=== PATIENT | female | born 1930 | race Caucasian/White ===

== ENCOUNTER 2017-02-09 13:45 | Inpatient (IN) | payer OTHER ==
[~2017-02-09] VITALS: Ht 157.5 cm; Wt 108.9 kg
[~2017-02-09 13:45] MED LIST: ACET-2619 PO; AMLO10TA1 PO; ASPI81CT89 PO; CALC1TAB PO; CARI350T PO; DONE10TA3 PO; DULO30EC PO; GEMF600T6 PO; HYDR2TAB6 PO; Milk Of Magnesia PO; NITR0.4T52 SL; TRAV5SOL OP; VIC PO; ZOLP10TA1 PO; [UNRECOGNIZED DRUG - CODE] IM; [UNRECOGNIZED DRUG - CODE] OP
--- NOTE | 2017-02-09 13:45 | NUR ---
Patient was BIBA at this time.
[2017-02-09 13:49] VITALS: BP 154/74
--- NOTE | 2017-02-09 13:56 | NUR ---
Patient taken to bed 04 via gurney per EMS.
--- NOTE | 2017-02-09 14:00 | NUR ---
PATIENT PRESENTS TO ED WITH right sided weakness since 10am today . PT STATES . DENIES N/V/D; SKIN IS PINK/WARM/DRY; AAOX4 LUNGS CLEAR BL; HR EVEN AND REGULAR; PT DENIES ANY FEVER, CP, SOB, OR COUGH AT THIS TIME; PATIENT STATES PAIN OF 8/10 AT THIS TIME to lle; VSS; PATIENT POSITIONED FOR COMFORT; HOB ELEVATED; BEDRAILS UP X2; BED DOWN. ER MD MADE AWARE OF PT STATUS.
--- NOTE | 2017-02-09 14:03 | NUR ---
Dr. Barboza evaluating patient at bedside.
--- NOTE | 2017-02-09 14:12 | NUR ---
Patient to CT via [facility].
[2017-02-09 14:46] LABS: BASOPHILS # (AUTO) 0.1 K/uL (0.00-0.22); EOSINOPHILS # (AUTO) 0.7 K/uL (0-0.4); HEMOGLOBIN 11.6 g/dL (12.0-16.0); LYMPHOCYTES # (AUTO) 1.3 K/uL (2.5-16.5); RED CELL DISTRIBUTION WIDTH 13.9 % (11.6-13.7)
[2017-02-09 14:49] LABS: BASOPHILS % (AUTO) 1.6 % (0.0-2.0); EOSINOPHILS % (AUTO) 7.5 % (0.0-4.0); LYMPHOCYTES % (AUTO) 14.4 % (20.5-51.1); MEAN CORPUSCULAR HEMOGLOBIN 29 pg (27-31); MEAN CORPUSCULAR HGB CONC 33 g/dL (33-37); MEAN CORPUSCULAR VOLUME 89 fL (80-94); MONOCYTES # (AUTO) 0.4 K/uL (0.8-1.0); NEUTROPHILS # (AUTO) 6.3 K/uL (1.8-7.7); NEUTROPHILS % (AUTO) 71.5 % (42.2-75.2); PLATELET COUNT (AUTO) 388 K/uL (140-450); RED BLOOD CELL COUNT(AUTO) 3.96 MIL/uL (4.20-5.40); WHITE BLOOD COUNT (AUTO) 8.8 K/uL (4.8-10.8)
--- NOTE | 2017-02-09 14:58 | NUR ---
stayed speaking with pt at length--she spoke of her favorite nurse and staff at her facility. remains with full clear speech continues to denie WHITNEY. remains with r sided weakness +sensation to all extremities
[2017-02-09] MEDS ORDERED: ASPIRIN 325 MG TAB PO ONE (15:00)
[2017-02-09 15:03] LABS: INR 1.1 (0.8-1.2); PARTIAL THROMBOPLASTIN TIME 26.5 secs (22-35.6); PROTHROMBIN TIME 10.3 secs (10.8-13.4)
--- NOTE | 2017-02-09 15:05 | NUR ---
pt requesting analgesic for LLE ---MD notified
[2017-02-09 15:07] LABS: ALANINE AMINOTRANSFERASE 16 U/L (12-78); ALBUMIN 3.3 g/dL (3.4-5.0); ALKALINE PHOSPHATASE 137 U/L (46-116); ANION GAP 14.2 (8-16); ASPARTATE AMINOTRANSFERASE 18 U/L (15-37); CALCIUM 8.7 mg/dL (8.5-10.1); CARBON DIOXIDE 25.5 mmol/L (21-32); CHLORIDE 100 mmol/L (98-107); GLUCOSE 116 mg/dL (74-106); POTASSIUM 3.7 mmol/L (3.5-5.1); SODIUM SERUM 136 mmol/L (136-145); TOTAL BILIRUBIN 0.2 mg/dL (0.0-1.0); TOTAL PROTEIN, SERUM 8.1 g/dL (6.4-8.2); UREA NITROGEN, BLOOD 37 mg/dL (7-18)
[2017-02-09] MEDS ORDERED: FUROSEMIDE 20 MG/2 ML VIAL IVP ONE (15:10)
[2017-02-09] MEDS ORDERED: ONDANSETRON 4 MG/2 ML VIAL IVP ONE (15:10)
[2017-02-09] MEDS ORDERED: HYDROmorphone 1 MG/ML AMP IVP ONE (15:10)
[2017-02-09] MEDS ORDERED: NITROGLYCERIN 2% 1 GM PKT TP ONE (15:10)
[2017-02-09] MEDS ORDERED: ACETAMINOPHEN 325 MG TAB PO PRN (15:25)
[2017-02-09] MEDS ORDERED: ONDANSETRON 4 MG/2 ML VIAL IVP PRN (15:25)
[2017-02-09] MEDS ORDERED: HYDROmorphone 2 MG TAB PO SCH (15:35)
--- NOTE | 2017-02-09 15:36 | NUR ---
Kenneth RN unable to take report at this time due to phone issue, he will call back
--- NOTE | 2017-02-09 15:58 | NUR ---
pt urine incontinent in diaper---diaper removed , pt cleaned--skin intact report given to Kenneth BELTRAN--urine collection pending ,
--- NOTE | 2017-02-09 15:59 | NUR ---
Pt transferred to Tele via aspen report given to Kenneth BELTRAN
[2017-02-09 16:10] LABS: CHOL/HDL RATIO 3.3 (1-4.5); FREE T4 (FREE THYROXINE) 0.83 ng/dL (0.76-1.46); MAGNESIUM 2.1 mg/dL (1.8-2.4); PHOSPHORUS 4.2 mg/dL (2.5-4.9); THYROID STIMULATING HORMONE 1.8 uIU/mL (0.34-3.76)
[2017-02-09 16:12] VITALS: BP 131/67
--- NOTE | 2017-02-09 16:12 | NUR ---
PT ADMITTED FROM ER, AWAKE ALERT AND ORIENTED X3. NO SIGNS OF ACUTE DISTRESS. BREATHING EVENLY AND UNLABORED. SKIN IS WARM AND DRY. PT IS LEGALLY BLIND. NO C/O ANY BOWEL OR BLADDER DISCOMFORT. ABLE TO MAKE NEEDS KNOWN. C/O LEFT LEG PAIN 03/22. MEDICATED FROM ER 20MINS AGO PER ASSIGNED ER NURSE. WILL REASSESS PAIN AND GIVE DUE MEDS ORDERED. SAFETY PRECAUTIONS MAINTAINED. ORIENTED TO HOSPITAL ENVIRONMENT. CALL LIGHT WITHIN REACH.
[2017-02-09] MEDS: NACL 0.9% 1,000 ML IV SCH (16:42)
[2017-02-09] MEDS: GEMFIBROZIL 600 MG TAB PO SCH (16:42)
[2017-02-09] MEDS: HYDROcodone/APAP 7.5/325 MG 1 TAB PO PRN ×2 (16:47→21:08)
[2017-02-09] MEDS ORDERED: MECLIZINE 25 MG TAB PO PRN (17:45)
[2017-02-09] MEDS ORDERED: DEXTROSE 50% 50 ML SYR IVP PRN (18:35)
[2017-02-09] MEDS ORDERED: INSULIN LISPRO SLIDING SCALE 100 UNITS/ML VIAL SUBQ PRN (18:35)
--- NOTE | 2017-02-09 18:35 | NUR ---
WAS SEEN BY DR. HERNADEZ, NEW ADMIT ORDERS RECEIVED. NOTED AND CARRIED OUT.
--- NOTE | 2017-02-09 19:00 | NUR ---
U/A COLLECTED AND SENT TO LAB. PT ALERT AND RESPONSIVE, NO SIGNS OF ACUTE DISTRESS. ENDORSED TO ONCOMING AUDIT MANAGER NURSE FOR CONTINUITY OF CARE.
--- NOTE | 2017-02-09 19:20 | NUR ---
RECD. SITTING ON BED, AWAKE, A/OX2. RESPIRATION EVEN AND UNLABORED. EATING HER DINNER. IV OF NS AT 50 ML/HR INFUSING, LEFT FOREARM G 22. LEGALLY BLIND. SAFETY MEASURES ENFORCED. PAIN IN THE LEFT LEG 09/22, WILL MEDICATE ORDERED. PLAN OF CARE FOR THE SHIFT DISCUSSED. NEEDS REINFORCEMENT. REORIENTED TO HOSPITAL SETTING.
[2017-02-09 20:00] VITALS: BP 125/65
--- NOTE | 2017-02-09 20:15 | NUR ---
FINISHED EATING DINNER, ATE 100%.
--- NOTE | 2017-02-09 20:35 | NUR ---
ASSISTED BY SENIOR RELATIONSHIP MANAGER TO BSC TO VOID. BACK TO BED AFTER VOIDING, SAFETY MAINTAINED.
[2017-02-09 21:04] LABS: APPEARANCE,URINE HAZY (CLEAR); BILIRUBIN,URINE NEGATIVE (NEGATIVE); BLOOD, URINE NEGATIVE (NEGATIVE); COLOR,URINE YELLOW (YELLOW); LEUKOCYTE ESTERASE ,URINE 2+ (NEGATIVE); NITRITE, URINE NEGATIVE (NEGATIVE); PH,URINE 6.5 (5.0-9.0); PROTEIN,URINE 1+ (NEGATIVE); UGLUCOSE NEGATIVE (NEGATIVE); UROBILINOGEN,URINE 0.2 EU/dL (0.2 - 1)
[2017-02-09] MEDS: DOCUSATE SODIUM 100 MG GELCAP PO SCH (21:08)
[2017-02-09] MEDS: ATORVASTATIN 20 MG TAB PO SCH (21:08)
[2017-02-09] MEDS: DONEPEZIL 10 MG TAB PO SCH (21:08)
[2017-02-09 21:10] LABS: BACTERIA,URINE 3+ /HPF (None Seen); RBC,URINE 0-3 /HPF (0-5); SQUAMOUS EPITHELIAL CELL,UR 0-3 /LPF (0-3 (FEW)); WBC,URINE 40-60 /HPF (0-5)
[2017-02-09] MEDS: BLOOD GLUCOSE MONITORING 1 DEV DEV FS SCH (21:12)
--- NOTE | 2017-02-09 21:15 | NUR ---
US TECH AT THE BEDSIDE, DOING US OF BILATERAL CAROTID.
[2017-02-09] MEDS: ZOLPIDEM 10 MG TAB PO PRN (22:32)
--- NOTE | 2017-02-09 22:32 | NUR ---
UNABLE TO SLEEP, MEDICATED WITH AMBIEN 10 MG. PO.
[2017-02-09] MEDS ORDERED: cefTRIAXone 1,000 MG VIAL ONE (22:41)
--- NOTE | 2017-02-09 23:32 | NUR ---
SLEEPING COMFORTABLY IN BED.
[2017-02-10] VITALS: BP 128/67
[2017-02-10 04:00] VITALS: BP 130/65
[2017-02-10] MEDS: HYDROcodone/APAP 7.5/325 MG 1 TAB PO PRN ×3 (05:22→20:13)
--- NOTE | 2017-02-10 05:32 | NUR ---
BS CHECKED - 89, 120 ML ORANGE JUICE GIVEN.
[2017-02-10 06:19] LABS: BASOPHILS % (AUTO) 0.5 % (0.0-2.0); EOSINOPHILS # (AUTO) 0.7 K/uL (0-0.4); EOSINOPHILS % (AUTO) 7.3 % (0.0-4.0); HEMOGLOBIN 10.3 g/dL (12.0-16.0); LYMPHOCYTES # (AUTO) 1.2 K/uL (2.5-16.5); MEAN CORPUSCULAR HEMOGLOBIN 29 pg (27-31); MEAN CORPUSCULAR HGB CONC 33 g/dL (33-37); MEAN CORPUSCULAR VOLUME 88 fL (80-94); MONOCYTES # (AUTO) 0.8 K/uL (0.8-1.0); MONOCYTES % (AUTO) 8.3 % (1.7-9.3); NEUTROPHILS # (AUTO) 6.7 K/uL (1.8-7.7); NEUTROPHILS % (AUTO) 70.9 % (42.2-75.2); PLATELET COUNT (AUTO) 389 K/uL (140-450); RED BLOOD CELL COUNT(AUTO) 3.52 MIL/uL (4.20-5.40); RED CELL DISTRIBUTION WIDTH 13.8 % (11.6-13.7); WHITE BLOOD COUNT (AUTO) 9.4 K/uL (4.8-10.8)
[2017-02-10] MEDS: BLOOD GLUCOSE MONITORING 1 DEV DEV FS SCH ×4 (06:31→21:32)
[2017-02-10 06:40] LABS: ANION GAP 14.1 (8-16); CALCIUM 8.2 mg/dL (8.5-10.1); CARBON DIOXIDE 25.7 mmol/L (21-32); CHLORIDE 104 mmol/L (98-107); CREATININE 1.9 mg/dL (0.6-1.3); GLUCOSE 95 mg/dL (74-106); POTASSIUM 3.8 mmol/L (3.5-5.1); SODIUM SERUM 140 mmol/L (136-145); UREA NITROGEN, BLOOD 35 mg/dL (7-18)
--- NOTE | 2017-02-10 06:42 | NUR ---
SLEEPING COMFORTABLY IN BED. SAFETY MAINTAINED DURING SHIFT. WILL ENDORSE TO AM NURSE FOR CONTINUITY OF CARE.
[2017-02-10 06:54] LABS: MAGNESIUM 2.1 mg/dL (1.8-2.4); PHOSPHORUS 4.3 mg/dL (2.5-4.9)
--- NOTE | 2017-02-10 07:20 | NUR ---
ENDORSED TO DEVIN LITTLE FOR CONTINUITY OF CARE.
--- NOTE | 2017-02-10 07:25 | NUR ---
REPORT RECEIVED FROM LABORATORY VETERINARIAN, PT SLEEPING QUIETLY IN NAD, RESP EVEN UNLABORED ON ROOM AIR, AROUSED EASILY BY VOICE, PLAN OF CARE REVIEWED, PT DENIES PAIN OR DISCOMFORT, CALL PRESSLEY WITHIN REACH, BED LOCKED IN LOW POSITION, SIDE RAILS UP. WILL CONTINUE TO MONITOR.
[2017-02-10 08:00] VITALS: BP 127/61
[2017-02-10] MEDS: PANTOPRAZOLE 40 MG INJ VIAL IVP SCH (08:19)
[2017-02-10] MEDS: ASPIRIN 81 MG TAB.CHEW PO SCH (08:20)
[2017-02-10] MEDS: DOCUSATE SODIUM 100 MG GELCAP PO SCH ×2 (08:20→21:05)
[2017-02-10] MEDS: CELECOXIB 100 MG CAP PO SCH (08:20)
[2017-02-10] MEDS: POLYVINYL ALCOHOL 1.4% OP 15 ML SOL OP SCH (08:20)
[2017-02-10] MEDS: CALCIUM CARB/VIT-D 500 MG/200 IU 1 TAB PO SCH (08:21)
[2017-02-10] MEDS: METOPROLOL 25 MG TAB PO SCH ×2 (08:21→21:05)
[2017-02-10] MEDS: GEMFIBROZIL 600 MG TAB PO SCH ×2 (08:21→17:47)
[2017-02-10] MEDS: DULoxetine 30 MG CAPDR PO SCH (08:21)
[2017-02-10] MEDS: LACTOBACILLUS RHAMNOSUS GG 1 EACH CAP PO SCH (08:21)
--- NOTE | 2017-02-10 08:40 | NUR ---
PT REPOSITIONED, SITTING UP FOR BREAKFAST, ASSISTED WITH BREAKFAST, EATING WELL WITHOUT PROBLEM.
[2017-02-10] MEDS ORDERED: LEVOFLOXACIN 500 MG/D5W PREMIX 100 ML IV SCH (09:00)
[2017-02-10] MEDS ORDERED: amLODIPine 5 MG TAB PO SCH (09:00)
--- NOTE | 2017-02-10 09:15 | NUR ---
PHYSICAL THERAPY AT BEDSIDE
--- NOTE | 2017-02-10 10:23 | NUR ---
PATIENT HAS BEEN SCREENED AND CATEGORIZED HIGH NUTRITION RISK. PATIENT WILL BE SEEN WITHIN 1-2 DAYS OF ADMISSION. 02/10/17-02/11/[address]
[2017-02-10] MEDS: NACL 0.9% 1,000 ML IV SCH ×2 (11:12→15:19)
[2017-02-10 12:00] VITALS: BP 140/65
--- NOTE | 2017-02-10 13:02 | NUR ---
LINEN CHANGED, DIAPER CHANGED, PERICARE DONE, PT NOW RESTING QUIETLY IN NAD, RESP NASRA UNLABORED, SPEAKS CLEARLY, WILL CONTINUE TO MONITOR, CALL PRESSLEY WITHIN REACH, SIDE RAILS UP, BED LOCKED IN LOW POSITION, WILL CONTINUE TO MONITOR.
[2017-02-10] MEDS: MORPHINE SULFATE 2 MG/ML SYR IVP PRN ×2 (13:17→23:07)
--- NOTE | 2017-02-10 14:05 | NUR ---
02/10/17 RD INITIAL ASSESSMENT COMPLETED PLEASE REFER TO NUTRITION ASSESSMENT UNDER CARE ACTIVITY FOR ESTIMATED NUTRITIONAL NEEDS. 1. CONTINUE 60 G CONSISTENT CARBOHDYRATE DIET 2. RD TO FOLLOW-UP 3-5 DAYS; MODERATE RISK TERELL ALMAZAN RD
[2017-02-10 16:00] VITALS: BP 140/65
--- NOTE | 2017-02-10 16:00 | NUR ---
PT ASSISTED TO BEDSIDE COMMODE, LARGE BM
--- NOTE | 2017-02-10 18:54 | NUR ---
PT ASSISTED TO BEDSIDE COMMODE AGAIN.
--- NOTE | 2017-02-10 19:25 | NUR ---
RECD. RESTING IN BED, AWAKE, A/OX1. RESPIRATION EVEN AND UNLABORED. IV OF NS AT 100 ML/HR INFUSING, LEFT ARM G20. LEGALLY BLIND. SAFETY MEASURES ENFORCED. USES BSC WITH ASSISTANCE. PLAN OF CARE FOR THE SHIFT DISCUSSED. REINFORCEMENT NEEDED. REORIENTED TO HOSPITAL SETTING. DENIES PAIN 0/10.
--- NOTE | 2017-02-10 21:00 | NUR ---
Patient's Plan of Care was discussed and reviewed with GENERAL INTERN: RAJESH RODRIGUEZ
[2017-02-10] MEDS: DONEPEZIL 10 MG TAB PO SCH (21:04)
--- NOTE | 2017-02-10 21:04 | NUR ---
DUE PO MEDICATIONS GIVEN, TOLERATED WELL.
[2017-02-10] MEDS: ATORVASTATIN 20 MG TAB PO SCH (21:05)
[2017-02-10] MEDS: ZOLPIDEM 10 MG TAB PO PRN (21:05)
--- NOTE | 2017-02-10 21:05 | NUR ---
UNABLE TO SLEEP, MEDICATED WITH AMBIEN 10 MG. PO.
--- NOTE | 2017-02-10 22:00 | NUR ---
KEEP ON CALLING NURSE TO BE CHANGED, CLEANSED NEEDED AND MADE COMFORTABLE IN BED.
[2017-02-10 22:51] VITALS: BP 141/69
--- NOTE | 2017-02-11 | NUR ---
TRYING TO GET OUT OF BED, ASSISTED BY WASTEWATER ANALYST LAB ANALYST TO GO TO BSC. BACK TO BED AFTER VOIDING. STILL UNABLE TO SLEEP.
[2017-02-11] MEDS: CARISOPRODOL 350 MG TAB PO PRN (01:51)
--- NOTE | 2017-02-11 01:51 | NUR ---
NORCO AND MORPHINE DID NOT WORK TO TAKE AWAY LEG PAIN, MEDICATED WITH SOMA ORDERED. MADE COMFORTABLE IN BED WITH WARM BLANKETS.
--- NOTE | 2017-02-11 01:51 | NUR ---
WITH MUSCLE SPASMS, MEDICATED WITH SOMA ORDERED.
--- NOTE | 2017-02-11 02:00 | NUR ---
SLEEPING COMFORTABLY IN BED.
--- NOTE | 2017-02-11 02:51 | NUR ---
DECREASED MUSCLE SPASM BUT ONLY LAST FOR A SHORT WHILE. GIVE WARM BLANKETS FOR COMFORT.
[2017-02-11 04:00] VITALS: BP 150/61
[2017-02-11] MEDS: MORPHINE SULFATE 2 MG/ML SYR IVP PRN ×2 (04:08→08:24)
[2017-02-11] MEDS: BLOOD GLUCOSE MONITORING 1 DEV DEV FS SCH ×4 (05:51→20:31)
[2017-02-11] MEDS: HYDROmorphone 2 MG TAB PO PRN ×3 (06:06→20:33)
[2017-02-11 06:31] LABS: BASOPHILS % (AUTO) 0.5 % (0.0-2.0); EOSINOPHILS # (AUTO) 0.5 K/uL (0-0.4); EOSINOPHILS % (AUTO) 5.6 % (0.0-4.0); HEMATOCRIT 32.8 % (36-48); HEMOGLOBIN 11.3 g/dL (12.0-16.0); LYMPHOCYTES # (AUTO) 1.2 K/uL (2.5-16.5); LYMPHOCYTES % (AUTO) 13.9 % (20.5-51.1); MEAN CORPUSCULAR HEMOGLOBIN 30 pg (27-31); MEAN CORPUSCULAR HGB CONC 34 g/dL (33-37); MEAN CORPUSCULAR VOLUME 88 fL (80-94); MONOCYTES # (AUTO) 0.7 K/uL (0.8-1.0); MONOCYTES % (AUTO) 7.8 % (1.7-9.3); NEUTROPHILS # (AUTO) 6.1 K/uL (1.8-7.7); NEUTROPHILS % (AUTO) 72.2 % (42.2-75.2); PLATELET COUNT (AUTO) 333 K/uL (140-450); RED BLOOD CELL COUNT(AUTO) 3.72 MIL/uL (4.20-5.40); RED CELL DISTRIBUTION WIDTH 13.1 % (11.6-13.7); WHITE BLOOD COUNT (AUTO) 8.5 K/uL (4.8-10.8)
[2017-02-11 06:49] LABS: ANION GAP 16.1 (8-16); CARBON DIOXIDE 23.4 mmol/L (21-32); CHLORIDE 103 mmol/L (98-107); CREATININE 1.6 mg/dL (0.6-1.3); GLUCOSE 98 mg/dL (74-106); POTASSIUM 3.5 mmol/L (3.5-5.1); SODIUM SERUM 139 mmol/L (136-145); UREA NITROGEN, BLOOD 27 mg/dL (7-18)
--- NOTE | 2017-02-11 06:50 | NUR ---
CONDITION REMAIN STABLE. FREQUENT CALLS ATTENDED PROMPTLY. PAIN MEDICATIONS GIVEN ORDERED. SAFETY MAINTAINED DURING SHIFT. WILL ENDORSE TO AM NURSE FOR CONTINUITY OF CARE.
--- NOTE | 2017-02-11 07:15 | NUR ---
ENDORSED TO DEVIN LITTLE FOR CONTINUITY OF CARE.
--- NOTE | 2017-02-11 07:30 | NUR ---
REPORT RECEIVED FROM CRITICAL CARE NURSE, PT RESTING QUIETLY, RESP EVEN UNLABORED, SPEAKING CLEARLY IN NAD, PLAN OF CARE DISCUSSED, PT DENIES ANY IMMEDIATE NEEDS, CALL PRESSLEY WITHIN REACH, SIDE RAILS UP, BED LOCKED IN LOW POSITION, WILL CONTINUE TO MONITOR.
[2017-02-11 07:58] VITALS: BP 150/90
[2017-02-11] MEDS: LACTOBACILLUS RHAMNOSUS GG 1 EACH CAP PO SCH (08:13)
[2017-02-11] MEDS: PANTOPRAZOLE 40 MG INJ VIAL IVP SCH (08:13)
[2017-02-11] MEDS: GEMFIBROZIL 600 MG TAB PO SCH ×2 (08:15→17:47)
[2017-02-11] MEDS: DOCUSATE SODIUM 100 MG GELCAP PO SCH ×2 (08:15→20:32)
[2017-02-11] MEDS: DULoxetine 30 MG CAPDR PO SCH (08:16)
[2017-02-11] MEDS: METOPROLOL 25 MG TAB PO SCH ×2 (08:16→20:33)
[2017-02-11] MEDS: CELECOXIB 100 MG CAP PO SCH (08:16)
[2017-02-11] MEDS: ASPIRIN 81 MG TAB.CHEW PO SCH (08:16)
[2017-02-11] MEDS: CALCIUM CARB/VIT-D 500 MG/200 IU 1 TAB PO SCH (08:16)
[2017-02-11] MEDS: POLYVINYL ALCOHOL 1.4% OP 15 ML SOL OP SCH (08:27)
[2017-02-11] MEDS: HYDROcodone/APAP 7.5/325 MG 1 TAB PO PRN ×2 (10:47→17:45)
--- NOTE | 2017-02-11 10:47 | NUR ---
DIAPER CHANGED, PERICARE DONE, PT C/O RIGHT LEG PAIN, NORCO GIVEN, POSITION CHANGED FOR COMFORT, CALL PRESSLEY WITHIN REACH, BED LOCKED IN LOW POSITION, WILL CONTINEUT O MONITOR.
--- NOTE | 2017-02-11 11:48 | NUR ---
PT WITH SMALL SPIT UP/EMESIS, GOWN CHANGED, DIAPER CHANGED PERICARE DONE, PT POSITIONED FOR COMFORT, CALL PRESSLEY WITHIN REACH, SIDE RAILS UP, BED LOCKED IN LOW POSITION, PT DENIES ANY IMMEDIATE NEEDS, WILL CONTINUE TO MONITOR.
[2017-02-11 12:00] VITALS: BP 160/78
--- NOTE | 2017-02-11 14:47 | NUR ---
PT C/O RIHT LEG PAIN, PT REQUESTS LEG TO BE RUBBED WITH VASELINE, PRN DILAUDID GIVEN FOR PAIN AT THIS TIME, CALL PRESSLEY WITHIN REACH, SIDE RAILS UP, BED LOCKED IN LOW POSITION, WILL CONTINUE TO MONITOR.
--- NOTE | 2017-02-11 15:47 | NUR ---
PT SLEEPING QUIETLY NOW IN NAD, WILL CONTINUE TO MONITOR.
[2017-02-11 16:00] VITALS: BP 142/82
--- NOTE | 2017-02-11 17:45 | NUR ---
DIAPER CHANGED, PERICARE DONE, PT SAT UP TO EAT DINNER, PT C/O PAIN AGAIN, PRN NORCO GIVEN AT THIS TIME, IVF INFUSING WELL, SITE CLEAR, PT NEEDING REPEATED REASURANCE AND REORIENTATION TO WHY SHE IS HERE, CALL PRESSLEY WITHIN REACH, SIDE RAILS UP, WILL CONTINUE TO MONITOR
--- NOTE | 2017-02-11 19:44 | NUR ---
REPORT GIVEN TO COUNTERINTELLIGENCE SPECIALIST, PT IN STABLE CONDITION.
--- NOTE | 2017-02-11 19:45 | NUR ---
RECD. RESTING IN BED, AWAKE, A/OX1. RESPIRATION EVEN AND UNLABORED. IV OF NS AT 50 ML/HR, RIGHT AC G20. REORIENTED TO HOSPITAL SETTING. SAFETY MEASURES ENFORCED. STATED WITH ON AND OFF PAIN IN THE LEFT LEG, 10/23. WILL MEDICATE ORDERED. PLAN OF CARE FOR THE SHIFT DISCUSSED. NEEDS REINFORCEMENT. NO AGITATION NOTED.
[2017-02-11 20:00] VITALS: BP 137/72
[2017-02-11] MEDS: DONEPEZIL 10 MG TAB PO SCH (20:32)
[2017-02-11] MEDS: ATORVASTATIN 20 MG TAB PO SCH (20:32)
[2017-02-11] MEDS: ZOLPIDEM 10 MG TAB PO PRN (20:33)
--- NOTE | 2017-02-11 21:00 | NUR ---
Patient's Plan of Care was discussed and reviewed with MANUFACTURING SR ENGINEER: RAJESH RODRIGUEZ
[2017-02-12] VITALS: BP 160/73
--- NOTE | 2017-02-12 | NUR ---
SLEEPING COMFORTABLY IN BED.
[2017-02-12] MEDS: HYDROmorphone 2 MG TAB PO PRN ×5 (03:07→22:22)
[2017-02-12] MEDS: NACL 0.9% 1,000 ML IV SCH ×2 (03:22→23:37)
[2017-02-12 04:00] VITALS: BP 155/70
--- NOTE | 2017-02-12 04:00 | NUR ---
MADE COMFORTABLE IN BED WITH WARM BLANKETS.
[2017-02-12] MEDS: HYDROcodone/APAP 7.5/325 MG 1 TAB PO PRN ×2 (04:23→21:02)
[2017-02-12] MEDS: BLOOD GLUCOSE MONITORING 1 DEV DEV FS SCH ×4 (06:20→21:01)
[2017-02-12 06:38] LABS: BASOPHILS # (AUTO) 0.1 K/uL (0.00-0.22); BASOPHILS % (AUTO) 0.8 % (0.0-2.0); EOSINOPHILS # (AUTO) 0.4 K/uL (0-0.4); EOSINOPHILS % (AUTO) 5.3 % (0.0-4.0); HEMOGLOBIN 11.5 g/dL (12.0-16.0); MEAN CORPUSCULAR HEMOGLOBIN 30 pg (27-31); MEAN CORPUSCULAR HGB CONC 34 g/dL (33-37); MEAN CORPUSCULAR VOLUME 88 fL (80-94); MONOCYTES # (AUTO) 0.6 K/uL (0.8-1.0); MONOCYTES % (AUTO) 7.4 % (1.7-9.3); NEUTROPHILS # (AUTO) 5.7 K/uL (1.8-7.7); NEUTROPHILS % (AUTO) 73.5 % (42.2-75.2); PLATELET COUNT (AUTO) 351 K/uL (140-450); RED BLOOD CELL COUNT(AUTO) 3.87 MIL/uL (4.20-5.40); RED CELL DISTRIBUTION WIDTH 13.1 % (11.6-13.7); WHITE BLOOD COUNT (AUTO) 7.8 K/uL (4.8-10.8)
--- NOTE | 2017-02-12 06:41 | NUR ---
COMPLAINT OF LEG PAIN ATTENDED PROMPTLY, MEDICATED ORDERED. CONDITION REMAIN STABLE. WILL ENDORSED TO AM NURSE FOR CONTINUITY OF CARE.;
[2017-02-12] MEDS: GEMFIBROZIL 600 MG TAB PO SCH ×2 (06:53→17:09)
[2017-02-12 07:00] LABS: ANION GAP 15.1 (8-16); CALCIUM 8.8 mg/dL (8.5-10.1); CARBON DIOXIDE 24.4 mmol/L (21-32); CHLORIDE 101 mmol/L (98-107); CREATININE 1.7 mg/dL (0.6-1.3); GLUCOSE 89 mg/dL (74-106); POTASSIUM 3.5 mmol/L (3.5-5.1); SODIUM SERUM 137 mmol/L (136-145); UREA NITROGEN, BLOOD 24 mg/dL (7-18)
[2017-02-12 07:04] LABS: PHOSPHORUS 3.2 mg/dL (2.5-4.9)
--- NOTE | 2017-02-12 07:15 | NUR ---
ENDORSED TO DEVIN BINGHAM FOR CONTINUITY OF CARE.
--- NOTE | 2017-02-12 07:17 | NUR ---
RECEIVED REPORT FROM SHAYE RN. PT SLEEPING IN BED. AAOX3. NO S/S OF ACUTE DISTRESS. IV SITE PATENT AND INTACT. CALL LIGHT WITHIN REACH. TELE BOX IN PLACE. BED ALARM ON. WILL CONTINUE TO MONITOR.
[2017-02-12 07:55] VITALS: BP 135/60
[2017-02-12] MEDS: ASPIRIN 81 MG TAB.CHEW PO SCH (08:50)
[2017-02-12] MEDS: CALCIUM CARB/VIT-D 500 MG/200 IU 1 TAB PO SCH (08:50)
[2017-02-12] MEDS: CELECOXIB 100 MG CAP PO SCH (08:50)
[2017-02-12] MEDS: DULoxetine 30 MG CAPDR PO SCH (08:50)
[2017-02-12] MEDS: LACTOBACILLUS RHAMNOSUS GG 1 EACH CAP PO SCH (08:50)
[2017-02-12] MEDS: DOCUSATE SODIUM 100 MG GELCAP PO SCH ×2 (08:50→21:02)
[2017-02-12] MEDS: METOPROLOL 25 MG TAB PO SCH (08:51)
[2017-02-12] MEDS: PANTOPRAZOLE 40 MG INJ VIAL IVP SCH (08:51)
[2017-02-12] MEDS: POLYVINYL ALCOHOL 1.4% OP 15 ML SOL OP SCH (08:51)
--- NOTE | 2017-02-12 08:51 | NUR ---
AM MEDICATIONS GIVEN WITH EDUCATION. PT VERBALIZED UNDERSTANDING. PT TOLERATED WELL. PT STATES PAIN 8/10 IN LEGS. PT MEDICATED ORDERED.
--- NOTE | 2017-02-12 11:43 | NUR ---
PT RESTING IN BED. NO S/S OF ACUTE DISTRESS. PT CHANGED AND REPOSITIONED. CALL LIGHT WITHIN REACH. SAFETY MEASURES ENSURED. WILL CONTINUE TO MONITOR.
--- NOTE | 2017-02-12 11:55 | NUR ---
CALLED [facility] AND LEFT MESSAGE FOR MANA TO CALL ME BACK ABOUT PATIENT PLANNING TO GO BACK ON WEDNESDAY. FAXED INFORMATION TO [facility] AT [phone], WHICH WAS THE FAX NUMBER GIVEN BY ANASTASIYA.
[2017-02-12 12:57] VITALS: BP 150/73
--- NOTE | 2017-02-12 13:31 | NUR ---
SPOKE WITH MANA AT [facility]. SHE SAID THAT SHE DOESN'T HAVE A BED TODAY FOR THIS PATIENT BUT WILL HAVE A BED ON WEDNESDAY. MAKE SURE THE NURSE CALLS [facility] ON WEDNESDAY TO GET THE BED. AMBIKA BELTRANSALMON TROLL FISHER NURSE AWARE.
--- NOTE | 2017-02-12 15:36 | NUR ---
PT RESTING IN BED. NO S/S OF ACUTE DISTRESS. PT DENIES PAIN. CALL LIGHT WITHIN REACH. SAFETY MEASURES ENSURED. WILL CONTINUE TO MONITOR.
[2017-02-12 16:00] VITALS: BP 135/80
--- NOTE | 2017-02-12 16:11 | NUR ---
PHYSICAL THERAPY CO-SIGN The Physical Therapy Progress Notes documented by Lens Blocker have been reviewed. Reviewed/Co-Signed by: Megha Garcia PT Documentation Done by:NOE MCLEAN PTA
--- NOTE | 2017-02-12 18:02 | NUR ---
PT'S IV LEAKING. IV DISCONTINUED. NEW IV START UNSUCCESSFUL. PT STATES SHE DOESN'T WANT AN IV AT THIS TIME. PT EDUCATED ON IMPORTANCE OF IV FOR FLUIDS AND MEDS. PT CONTINUED TO REFUSE.
--- NOTE | 2017-02-12 19:23 | NUR ---
ENDORSED PLAN OF CARE TO NIGHT RN. PT REMAINS IN STABLE CONDITION.
--- NOTE | 2017-02-12 19:30 | NUR ---
RECEIVED REPORT FROM DAY RN AT BEDSIDE, PATIENT IS AAOX3, EPISODES OF CONFUSION/FORGETFULNESS. ON ROOM AIR, NO SOB OR SIGN OF DISTRESS AT THIS TIME. NO IV ACCESS AT THIS TIME, PATIENT AGREED TO HAVE NEW IV REINSERTED. ANGELA IS LEGALLY BLIND, FALL PRECAUTIONS IN PLACE. SKIN INTACT, PT COMPLAINT OF LEFT LEG PAIN, WILL ADMINISTER PAIN MEDICATION PER MD ORDER. PATIENT ON ISOLATION, CONTACT PRECAUTIONS IN PLACE. SAFETY MEASURES CHECKED, DISCUSSED PLAN OF CARE WITH PATIENT, PATIENT VERBALIZED UNDERSTANDING, REINFORCEMENT NEEDED, CALL LIGHT WITHIN REACH, WILL CONTINUE TO CLOSELY MONITOR.
[2017-02-12 20:00] VITALS: BP 129/60
[2017-02-12] MEDS: METOPROLOL 50 MG TAB PO SCH (21:02)
[2017-02-12] MEDS: ATORVASTATIN 20 MG TAB PO SCH (21:02)
[2017-02-12] MEDS: DONEPEZIL 10 MG TAB PO SCH (21:02)
--- NOTE | 2017-02-12 21:10 | NUR ---
PM MEDS ADMINISTERED, PATIENT TOLERATED WELL, CALL LIGHT WITHIN REACH. WILL CONTINUE TO MONITOR
[2017-02-12] MEDS: ZOLPIDEM 10 MG TAB PO PRN (22:06)
--- NOTE | 2017-02-12 22:30 | NUR ---
PATIENT COMPLAIN TO PAIN IN LEFT LEG, MEDICATED WITH DILAUDED PER MD ORDER, WILL CONTINUE TO MONITOR.
[2017-02-13] VITALS: BP 154/72
--- NOTE | 2017-02-13 00:10 | NUR ---
PATIENT SLEEPING, EASILY AWOKEN, VITAL SIGNS STABLE, NO SOB OR SIGN OF DISTRESS, CALL LIGHT WITHIN REACH/ WILL CONTINUE TO MONITOR
--- NOTE | 2017-02-13 02:10 | NUR ---
PATIENT SLEEPING, NO SIGN OF DISTRESS, CALL LIGHT WITHIN REACH. WILL CONTINUE TO MONITOR.
--- NOTE | 2017-02-13 02:12 | NUR ---
PATIENT SLEEPING, NO SIGN OF DISTRESS, WILL CONTINUE TO MONITOR
[2017-02-13] MEDS: HYDROmorphone 2 MG TAB PO PRN ×3 (03:26→16:44)
[2017-02-13 04:00] VITALS: BP 148/63
--- NOTE | 2017-02-13 04:00 | NUR ---
VITAL SIGNS STABLE, WILL CONTINUE TO MONITOR
[2017-02-13] MEDS: HYDROcodone/APAP 7.5/325 MG 1 TAB PO PRN ×2 (04:55→10:38)
--- NOTE | 2017-02-13 06:20 | NUR ---
CALLED DIALYSIS NURSE TO CONFIRM DIALYSIS FOR PT. DIALYSIS NURSE AWARE. Addendum: 02/13/17 at 0653 by Bebe Moore RN WRONG PATIENT. DISREGARD NOTE
[2017-02-13] MEDS: BLOOD GLUCOSE MONITORING 1 DEV DEV FS SCH ×4 (06:42→21:04)
[2017-02-13 06:47] LABS: BASOPHILS # (AUTO) 0.1 K/uL (0.00-0.22); BASOPHILS % (AUTO) 0.8 % (0.0-2.0); EOSINOPHILS # (AUTO) 0.6 K/uL (0-0.4); EOSINOPHILS % (AUTO) 7.6 % (0.0-4.0); HEMATOCRIT 34.5 % (36-48); HEMOGLOBIN 11.5 g/dL (12.0-16.0); LYMPHOCYTES # (AUTO) 1.1 K/uL (2.5-16.5); LYMPHOCYTES % (AUTO) 15.1 % (20.5-51.1); MEAN CORPUSCULAR HEMOGLOBIN 29 pg (27-31); MEAN CORPUSCULAR HGB CONC 33 g/dL (33-37); MEAN CORPUSCULAR VOLUME 88 fL (80-94); MONOCYTES # (AUTO) 0.7 K/uL (0.8-1.0); NEUTROPHILS # (AUTO) 4.9 K/uL (1.8-7.7); NEUTROPHILS % (AUTO) 67.5 % (42.2-75.2); PLATELET COUNT (AUTO) 363 K/uL (140-450); RED BLOOD CELL COUNT(AUTO) 3.92 MIL/uL (4.20-5.40); RED CELL DISTRIBUTION WIDTH 13.4 % (11.6-13.7); WHITE BLOOD COUNT (AUTO) 7.4 K/uL (4.8-10.8)
[2017-02-13] MEDS: GEMFIBROZIL 600 MG TAB PO SCH ×2 (07:06→16:44)
[2017-02-13 07:18] LABS: ANION GAP 14.6 (8-16); CALCIUM 8.4 mg/dL (8.5-10.1); CARBON DIOXIDE 23.9 mmol/L (21-32); CHLORIDE 103 mmol/L (98-107); CREATININE 1.7 mg/dL (0.6-1.3); GLUCOSE 94 mg/dL (74-106); POTASSIUM 3.5 mmol/L (3.5-5.1); SODIUM SERUM 138 mmol/L (136-145); UREA NITROGEN, BLOOD 25 mg/dL (7-18)
[2017-02-13 07:24] LABS: PHOSPHORUS 3.4 mg/dL (2.5-4.9)
--- NOTE | 2017-02-13 07:30 | NUR ---
ENDORSED PATIENT TO DAY RN AT BEDSIDE, PATIENT IN STABLE CONDITION
--- NOTE | 2017-02-13 07:31 | NUR ---
RECEIVED REPORT FROM SHAYE JOHNS AT BEDSIDE, PATIENT IS DNR STATUS, ON ROOM AIR, NO SOB OR SIGN OF DISTRESS AT THIS TIME. PATIENT IS LEGALLY BLIND, FALL PRECAUTIONS IN PLACE. SKIN INTACT. IV TO LEFT WRIST # 22 RUNNING NS @ 50 ML/HR. PATIENT ON CONTACT ISOLATION. SAFETY MEASURES CHECKED, DISCUSSED PLAN OF CARE WITH PATIENT, PATIENT VERBALIZED UNDERSTANDING, CALL LIGHT WITHIN REACH, WILL CONTINUE TO CLOSELY MONITOR
[2017-02-13 08:00] VITALS: BP 138/70
[2017-02-13] MEDS: POLYVINYL ALCOHOL 1.4% OP 15 ML SOL OP SCH (09:00)
[2017-02-13] MEDS: DOCUSATE SODIUM 100 MG GELCAP PO SCH ×2 (09:33→20:50)
[2017-02-13] MEDS: METOPROLOL 50 MG TAB PO SCH ×2 (09:33→20:56)
[2017-02-13] MEDS: LACTOBACILLUS RHAMNOSUS GG 1 EACH CAP PO SCH (09:33)
[2017-02-13] MEDS: CALCIUM CARB/VIT-D 500 MG/200 IU 1 TAB PO SCH (09:34)
[2017-02-13] MEDS: ASPIRIN 81 MG TAB.CHEW PO SCH (09:34)
[2017-02-13] MEDS: DULoxetine 30 MG CAPDR PO SCH (09:34)
[2017-02-13] MEDS: CELECOXIB 100 MG CAP PO SCH (09:34)
[2017-02-13] MEDS: PANTOPRAZOLE 40 MG INJ VIAL IVP SCH (09:35)
[2017-02-13 12:00] VITALS: BP 135/68
--- NOTE | 2017-02-13 12:05 | NUR ---
PT SLEEPING IN BED. NO S/S OF RESPIRATORY DISTRESS NOTED.
--- NOTE | 2017-02-13 15:05 | NUR ---
PT STATED SHE WANTS TO GO HOME, ASKED ME TO REMOVE IV LINE, EXPLAINED TO PT I CAN NOT REMOVE THE IV.
[2017-02-13 16:00] VITALS: BP 140/72
--- NOTE | 2017-02-13 17:00 | NUR ---
PT'S SON PRESENT AT BEDSIDE TO CHECK PT.
--- NOTE | 2017-02-13 18:50 | NUR ---
PT STAYING IN BED, NO S/S OF RESPIRATORY DISTRESS NOTED.
--- NOTE | 2017-02-13 19:10 | NUR ---
REPORT GIVEN TO FORECAST ANALYST RN. RODNEY.
--- NOTE | 2017-02-13 19:20 | NUR ---
RECEIVED PT AWAKE, AAOX3, FORGETFUL AT TIMES, NO DISTRESS NOTED, PLAN OF CARE DISCUSS, CALL LIGHT WITHIN REACH.
--- NOTE | 2017-02-13 20:00 | NUR ---
PT YELLING OUT WANTS TO GET OOB AND USED THE BEDSIDE COMMODE, ASSISTED TO BEDSIDE COMMODE AND HAD MODERATE HARD STOOL NOTED, PERINEAL CARE DONE AND ASSISTED BACK TO BED, MAINTAINED ON CONTACT ISOLATION, SAFETY MEASURES IN PLACE, CALL LIGHT WITHIN REACH
[2017-02-13] MEDS: DONEPEZIL 10 MG TAB PO SCH (20:50)
[2017-02-13] MEDS: MORPHINE SULFATE 2 MG/ML SYR IVP PRN (20:50)
[2017-02-13] MEDS: ATORVASTATIN 20 MG TAB PO SCH (20:50)
--- NOTE | 2017-02-13 21:04 | NUR ---
BLOOD SUGAR CHECKED WITH 128 RESULT, SNACK PROVIDED, DUE PO MEDICATION GIVEN, ALL NEEDS ATTENDED.
[2017-02-13] MEDS: CARISOPRODOL 350 MG TAB PO PRN (22:04)
--- NOTE | 2017-02-13 22:05 | NUR ---
PT STILL WITH LEFT LEG PAIN, MEDICATED WITH SOMA PO, PT REQUESTING TO WALK BECAUSE SHE THINKS THAT THE PAIN IS DUE TO POOR CIRCULATION, PT UNSTEADY, SCD'S APPLIED TO [place] LOWER LEGS, MONITORED CLOSELY.
[2017-02-13] MEDS: NACL 0.9% 1,000 ML IV SCH (22:08)
[2017-02-13] MEDS: ZOLPIDEM 10 MG TAB PO PRN (23:05)
--- NOTE | 2017-02-13 23:30 | NUR ---
PT AWAKE AND RESTLESS, VITAL SIGNS TAKEN, BP SLIGHTLY ELEVATED, DENIES CHEST PAIN, ASSISTED TO BEDSIDE COMMODE AND VOIDED FREELY, MEDICATED PRN FOR SLEEP WITH AMBIEN PO, CONTINUE TO MONITOR CLOSELY.
[2017-02-14] VITALS: BP 163/77
[2017-02-14] MEDS: HYDROmorphone 2 MG TAB PO PRN ×2 (02:29→06:31)
[2017-02-14 02:30] VITALS: BP 142/63
--- NOTE | 2017-02-14 02:30 | NUR ---
MEDICATED PRN FOR PAIN WITH DILAUDID PO, REPOSITION FOR COMFORT, MONITORED CLOSELY.
--- NOTE | 2017-02-14 04:25 | NUR ---
ROUNDED ON PT, SLEEPING, NO SIGNS OF DISTRESS NOTED, MONITORED CLOSELY.
--- NOTE | 2017-02-14 06:31 | NUR ---
PT COMPLAINING OF LEG PAIN, MEDICATED PRN WITH DILAUDID PO, DUE PO MEDICATION GIVEN, REPOSITION FOR COMFORT, CALL LIGHT WITHIN REACH, MONITORED CLOSELY.
[2017-02-14] MEDS: GEMFIBROZIL 600 MG TAB PO SCH (06:32)
[2017-02-14] MEDS: BLOOD GLUCOSE MONITORING 1 DEV DEV FS SCH ×2 (06:36→11:52)
--- NOTE | 2017-02-14 07:30 | NUR ---
PT AWAKE, NO SIGNS OF DISTRESS, REPORT GIVEN TO DEVIN NELSON FOR CONTINUITY OF CARE.
[2017-02-14 07:34] LABS: BASOPHILS # (AUTO) 0.1 K/uL (0.00-0.22); BASOPHILS % (AUTO) 0.7 % (0.0-2.0); EOSINOPHILS # (AUTO) 0.6 K/uL (0-0.4); EOSINOPHILS % (AUTO) 7.2 % (0.0-4.0); HEMATOCRIT 34.2 % (36-48); HEMOGLOBIN 11.3 g/dL (12.0-16.0); LYMPHOCYTES # (AUTO) 1.1 K/uL (2.5-16.5); LYMPHOCYTES % (AUTO) 13.7 % (20.5-51.1); MEAN CORPUSCULAR HEMOGLOBIN 29 pg (27-31); MEAN CORPUSCULAR HGB CONC 33 g/dL (33-37); MEAN CORPUSCULAR VOLUME 88 fL (80-94); MONOCYTES # (AUTO) 0.7 K/uL (0.8-1.0); NEUTROPHILS # (AUTO) 5.4 K/uL (1.8-7.7); NEUTROPHILS % (AUTO) 69.4 % (42.2-75.2); PLATELET COUNT (AUTO) 388 K/uL (140-450); RED BLOOD CELL COUNT(AUTO) 3.87 MIL/uL (4.20-5.40); WHITE BLOOD COUNT (AUTO) 7.9 K/uL (4.8-10.8)
--- NOTE | 2017-02-14 07:35 | NUR ---
RECEIVED REPORT FROM DEVIN TAYLOR. PT IS RESTING IN BED, A/OX3, GENERALIZED WEAKNESS, IV ON THE LEFT WRIST, PATENT, INTACT, FLUSHING WELL, SKIN INTACT, PATIENT IS BLIND IN BOTH EYES, NO S/S OF RESPIRATORY DISTRESS OR DISCOMFORT NOTED, SAFETY/FALL PRECAUTIONS ARE IN PLACE, DISCUSSED PLAN OF CARE WITH PT, PT VERBALIZED UNDERSTANDING, CALL LIGHT IS WITHIN REACH, WILL CONTINUE TO MONITOR.
[2017-02-14 07:41] LABS: ANION GAP 15.1 (8-16); CALCIUM 8.5 mg/dL (8.5-10.1); CARBON DIOXIDE 23.3 mmol/L (21-32); CHLORIDE 104 mmol/L (98-107); CREATININE 1.6 mg/dL (0.6-1.3); GLUCOSE 92 mg/dL (74-106); POTASSIUM 3.4 mmol/L (3.5-5.1); SODIUM SERUM 139 mmol/L (136-145); UREA NITROGEN, BLOOD 25 mg/dL (7-18)
[2017-02-14 07:51] LABS: MAGNESIUM 2.1 mg/dL (1.8-2.4); PHOSPHORUS 3.7 mg/dL (2.5-4.9)
[2017-02-14 08:00] VITALS: BP 142/68
--- NOTE | 2017-02-14 08:50 | NUR ---
CALLED [facility] AND SPOKE TO JAIR. PER JAIR, PT WILL GO TO ROOM 33 (ISOLATION ROOM) AFTER 3 PM TODAY.
[2017-02-14] MEDS: LACTOBACILLUS RHAMNOSUS GG 1 EACH CAP PO SCH (09:07)
[2017-02-14] MEDS: CALCIUM CARB/VIT-D 500 MG/200 IU 1 TAB PO SCH (09:07)
[2017-02-14] MEDS: METOPROLOL 50 MG TAB PO SCH (09:08)
[2017-02-14] MEDS: PANTOPRAZOLE 40 MG INJ VIAL IVP SCH (09:08)
[2017-02-14] MEDS: DOCUSATE SODIUM 100 MG GELCAP PO SCH (09:08)
--- NOTE | 2017-02-14 09:08 | NUR ---
DUE MEDICATIONS GIVEN, PT TOLERATED WELL, NO S/S OF RESPIRATORY DISTRESS NOTED, CALL LIGHT IS WITHIN REACH, WILL CONTINUE TO MONITOR.
[2017-02-14] MEDS: DULoxetine 30 MG CAPDR PO SCH (09:09)
[2017-02-14] MEDS: ASPIRIN 81 MG TAB.CHEW PO SCH (09:09)
[2017-02-14] MEDS: CELECOXIB 100 MG CAP PO SCH (09:09)
[2017-02-14] MEDS: POLYVINYL ALCOHOL 1.4% OP 15 ML SOL OP SCH (09:43)
[2017-02-14] MEDS: MORPHINE SULFATE 2 MG/ML SYR IVP PRN (10:15)
--- NOTE | 2017-02-14 11:15 | NUR ---
PT RESTING IN BED AT THIS TIME, LISTENING TO TV, CALL LIGHT WITHIN REACH, WILL CONTINUE TO MONITOR.
--- NOTE | 2017-02-14 13:15 | NUR ---
PT SITTING IN BED, EATING LUNCH AT THIS TIME, CALL LIGHT WITHIN REACH.
[2017-02-14] MEDS ORDERED: GABAPENTIN 300 MG CAP PO SCH ×2 (13:20→13:50)
[2017-02-14] MEDS ORDERED: POTASSIUM CHLORIDE 10 MEQ TABER PO SCH (14:00)
[2017-02-14] MEDS ORDERED: [UNRECOGNIZED DRUG - REMARK] (14:19)
[2017-02-14] MEDS ORDERED: LACT10CA PO (14:19)
[2017-02-14] MEDS ORDERED: ROC1PM IV (14:19)
[2017-02-14] MEDS ORDERED: ACET-9529 PO (14:19)
[2017-02-14] MEDS ORDERED: METO50TA99 PO (14:19)
[2017-02-14] MEDS ORDERED: GABA-638 PO (14:19)
[2017-02-14] MEDS ORDERED: MECL-272 PO (14:19)
--- NOTE | 2017-02-14 14:45 | NUR ---
I CALLED THE PATIENT'S SISTER TERELL STONE AT [phone], I WAS TOLD THIS WAS THE WRONG NUMBER AND THERE WAS NO TERELL STONE AT THIS NUMBER, THEY ASKED TO PLEASE REMOVE THIS NUMBER FROM THE LIST.
--- NOTE | 2017-02-14 14:47 | NUR ---
I CALLED [facility] IN [place], I SPOKE TO CYRIL, I LET HER KNOW I WAS TRYING TO GET A NEW NUMBER TO NOTIFY THE PATIENT'S SISTER (TERELL) THE PATIENT WOULD BE DISCHARGED TODAY, CYRIL SAID THEY ALSO HAD THEY SAME NUMBER WE HAVE ON FILE, BUT WOULD TRY TO FIND OUT IF THERE WAS ANOTHER NUMBER AND WOULD NOTIFY ME ONCE I CALLED BACK TO GIVE REPORT AND LET THEM KNOW WHAT TIME TRANSPORTATION WOULD BE PICKING UP THE PATIENT.
--- NOTE | 2017-02-14 15:15 | NUR ---
SPOKE WITH LORI SANDOVAL FROM [facility]. ETA WILL BE AT 1615 HRS. PT IS RETURNING TO [facility] FOR IV ANTIBIOTICS (ROOM 33, ISOLATION ROOM. MEDICARE FORM FAXED TO [facility].
[2017-02-14] MEDS: NACL 0.9% 1,000 ML IV SCH (15:56)
--- NOTE | 2017-02-14 16:15 | NUR ---
DISCHARGE INSTRUCTIONS GIVEN, REMOVED PT ID WRIST BAND, IV ON THE LT WRIST, PATENT, INTACT, HEP LOCK. PT TRANSPORTED BY [facility]. PT DISCHARGED IN STABLE CONDITION.
== END 2017-02-14 16:15 | DRG 56 ==
LOC: MED 13:45 → MTU 15:26
PROVIDERS: ADMIT Family Medicine; ATTEND Family Medicine
DX: G30.9 Alzheimer's disease, unspecified (principal); G93.41 Metabolic encephalopathy; N17.0 Acute kidney failure with tubular necrosis; I50.43 Acute on chronic combined systolic (congestive) and diastolic (congestive) heart failure; D68.59 Other primary thrombophilia; Z68.41 Body mass index [BMI] 40.0-44.9, adult; E44.1 Mild protein-calorie malnutrition; N39.0 Urinary tract infection, site not specified; I42.9 Cardiomyopathy, unspecified; I13.0 Hypertensive heart and chronic kidney disease with heart failure and stage 1 through stage 4 chronic kidney disease, or unspecified chronic kidney disease; F02.80 Dementia in other diseases classified elsewhere, unspecified severity, without behavioral disturbance, psychotic disturbance, mood disturbance, and anxiety; G90.9 Disorder of the autonomic nervous system, unspecified; E66.01 Morbid (severe) obesity due to excess calories; M19.90 Unspecified osteoarthritis, unspecified site; H54.0 Blindness, both eyes; G47.00 Insomnia, unspecified; F32.9 Major depressive disorder, single episode, unspecified; B96.20 Unspecified Escherichia coli [E. coli] as the cause of diseases classified elsewhere; Z16.24 Resistance to multiple antibiotics; N18.9 Chronic kidney disease, unspecified; E11.22 Type 2 diabetes mellitus with diabetic chronic kidney disease; E86.0 Dehydration; F25.9 Schizoaffective disorder, unspecified; E78.5 Hyperlipidemia, unspecified; Z66 Do not resuscitate; Z90.710 Acquired absence of both cervix and uterus; Z79.82 Long term (current) use of aspirin; Z79.899 Other long term (current) drug therapy; Z28.21 Immunization not carried out because of patient refusal
CPT/HCPCS: 36415; 70450; 71010; 80048; 80053; 81001; 82140; 82150; 82948; 83036; 83690; 83735; 83880; 84100; 84439; 84443; 84484; 85025; 85610; 85730; 86886; 86900; 86901; 87081; 87086; 87186; 93005; 93880; 93925; 93970; 96374; 96375; 97110; 97116; 97140; 97530; 99285; C9113; J0696; J1170; J1815; J1940; J1956; J2270; J2405; J7030; J7060; Q0092

== ENCOUNTER 2019-04-23 15:18 | Emergency (ER) | payer OTHER ==
[~2019-04-23] VITALS: Ht 162.6 cm; Wt 81.2 kg
[~2019-04-23 15:18] MED LIST changes: +ACET-9529 PO; +ASPI-1718 PO; -ASPI81CT89 PO; +DONE10TA10 PO; -DONE10TA3 PO; +GABA-638 PO; +LACT10CA PO; +MECL-272 PO; +METO50TA99 PO; +ROC1PM IV; +[UNRECOGNIZED DRUG - REMARK]
[2019-04-23 15:20] VITALS: BP 120/65
--- NOTE | 2019-04-23 15:20 | NUR ---
BIBA TO BED 7.
--- NOTE | 2019-04-23 15:20 | NUR ---
89 Y FEMALE BIBA FROM [facility] C/O HEAD PAIN S/P UNWITNESSED FALL X TODAY. PAIN 5/10 TO HEAD AND CHONIC BACK PAIN. NO TRAUMA NOTED. NO BLEEDING. AOX2 TO NAME, AGE. GCS 14, FORGETFUL. PATIENT RESPONSIVE TO NAME. PER EMS STAFF SAW PT ON THE FLOOR. DENIES ANY BLOOD THINNERS. BED IS DOWN, LOCKED, BED RAIL X 1, ERMD TO SEE PT. OLSON: BLIND,DEMENTIA ,HTN
--- NOTE | 2019-04-23 15:21 | NUR ---
GCS 14 PTS BASELINE
--- NOTE | 2019-04-23 15:21 | NUR ---
PMH- PNEUMONIA, GENERALIZED WEAKNESS, TYPE 2 DIABETES, OSTEOARTHRITIS, DEMENITA, DRY EYE SYNDROME, BLINDNESS, DIVERTICUCOLSIS, DIAPHRAGMATIC HERNIA, SPONDYLOLYSIS
--- NOTE | 2019-04-23 15:21 | NUR ---
C-COLLAR IN PLACE UPON ARRIVAL, REMOVED BY DR KUMAR
--- NOTE | 2019-04-23 15:37 | NUR ---
PT GOING TO XRAY AND CT VIA BRETT
--- NOTE | 2019-04-23 15:55 | NUR ---
PT BACK FROM U/S
--- NOTE | 2019-04-23 15:59 | NUR ---
LAB AT BEDSIDE
--- NOTE | 2019-04-23 16:00 | NUR ---
# 14 FR Urinary catheter inserted utilizing sterile technique. Immediate return of 150 ml YELLOW urine noted. Urine sample collected and sent to lab. Pt tolerated procedure WELL.
--- NOTE | 2019-04-23 16:02 | NUR ---
PT HAS A PRODUCTIVE COUGH. LOWER LUNGS COARSE BILATERALLY.
--- NOTE | 2019-04-23 16:21 | NUR ---
PT STARTED ON 4 L NC DUE TO SLEEP APNEA
[2019-04-23 16:27] LABS: BASOPHILS % (AUTO) 0.3 % (0.0-2.0); EOSINOPHILS # (AUTO) 0.5 K/uL (0-0.4); EOSINOPHILS % (AUTO) 5.3 % (0.0-4.0); HEMATOCRIT 32.1 % (36-48); HEMOGLOBIN 10.6 g/dL (12.0-16.0); LYMPHOCYTES # (AUTO) 0.9 K/uL (2.5-16.5); LYMPHOCYTES % (AUTO) 8.9 % (20.5-51.1); MEAN CORPUSCULAR HEMOGLOBIN 30 pg (27-31); MEAN CORPUSCULAR HGB CONC 33 g/dL (33-37); MEAN CORPUSCULAR VOLUME 90.2 fL (80-94); MONOCYTES # (AUTO) 0.4 K/uL (0.8-1.0); MONOCYTES % (AUTO) 3.8 % (1.7-9.3); NEUTROPHILS # (AUTO) 8.3 K/uL (1.8-7.7); NEUTROPHILS % (AUTO) 81.7 % (42.2-75.2); PLATELET COUNT (AUTO) 350 K/uL (140-450); RED BLOOD CELL COUNT(AUTO) 3.56 MIL/uL (4.20-5.40); RED CELL DISTRIBUTION WIDTH 14.8 % (11.6-13.7); WHITE BLOOD COUNT (AUTO) 10.2 K/uL (4.8-10.8)
[2019-04-23 16:44] LABS: ALBUMIN 3.2 g/dL (3.4-5.0); ANION GAP 16.6 (8-16); ASPARTATE AMINOTRANSFERASE 12 U/L (15-37); CARBON DIOXIDE 19.1 mmol/L (21-32); CHLORIDE 103 mmol/L (98-107); CREATININE 3.8 mg/dL (0.6-1.3); GLUCOSE 112 mg/dL (74-106); POTASSIUM 5.7 mmol/L (3.5-5.1); SODIUM SERUM 133 mmol/L (136-145); TOTAL BILIRUBIN 0.3 mg/dL (0.0-1.0)
[2019-04-23 16:47] LABS: APPEARANCE,URINE CLEAR (CLEAR); BILIRUBIN,URINE NEGATIVE (NEGATIVE); BLOOD, URINE NEGATIVE (NEGATIVE); COLOR,URINE YELLOW (YELLOW); LEUKOCYTE ESTERASE ,URINE NEGATIVE (NEGATIVE); NITRITE, URINE NEGATIVE (NEGATIVE); PH,URINE 5.5 (5.0-9.0); UGLUCOSE NEGATIVE (NEGATIVE)
[2019-04-23 16:48] LABS: UREA NITROGEN, BLOOD 75 mg/dL (7-18)
[2019-04-23] MEDS ORDERED: INSULIN REGULAR, HUMAN 100 UNIT/ML VIAL IVP ONE (16:50)
[2019-04-23] MEDS ORDERED: DEXTROSE 50% 50 ML SYR IVP ONE (16:50)
[2019-04-23] MEDS ORDERED: NACL 0.9% 1,000 ML IV ONE (16:50)
[2019-04-23] MEDS ORDERED: SODIUM POLYSTYRENE 15 GM/60 ML UDBTL PO ONE (16:50)
[2019-04-23] MEDS ORDERED: ALBUTEROL 0.083% 2.5 MG/3 ML NEBU INH ONE (16:50)
--- NOTE | 2019-04-23 17:01 | NUR ---
[facility] THERAPY AND RESPIRATORY DRUGS GIVEN ORDERED ENCOURAGED PATIENT FOR INTERMITENT DEEP BREATHNG AND COUGH
--- NOTE | 2019-04-23 17:58 | NUR ---
CALLED LAB FOR REDRAW
--- NOTE | 2019-04-23 17:58 | NUR ---
VSS AT THIS TIME. PTS OXYGEN CONTINUES TO FLUCTUATE BETWEEN 89% AND 99% WHEN PT IS SLEEPING
--- NOTE | 2019-04-23 18:02 | NUR ---
LAB AT BEDSIDE
--- NOTE | 2019-04-23 18:13 | NUR ---
ACCU CHECK 127
[2019-04-23 19:09] LABS: ANION GAP 18.2 (8-16); CARBON DIOXIDE 18.9 mmol/L (21-32); CHLORIDE 103 mmol/L (98-107); CREATININE 3.8 mg/dL (0.6-1.3); GLUCOSE 96 mg/dL (74-106); POTASSIUM 4.1 mmol/L (3.5-5.1); SODIUM SERUM 136 mmol/L (136-145)
[2019-04-23 19:11] LABS: UREA NITROGEN, BLOOD 75 mg/dL (7-18)
--- NOTE | 2019-04-23 19:12 | NUR ---
pt repositioned for comfort, report given to milady garcia
--- NOTE | 2019-04-23 19:13 | NUR ---
pt pulled out iv, continues to pull of nasal cannula
--- NOTE | 2019-04-23 19:15 | NUR ---
ASSUMED CARE OF PT FROM DEVIN LOVE. PT IN STABLE CONDITION.
--- NOTE | 2019-04-23 20:29 | NUR ---
PT MOVED TO ER BED 1
--- NOTE | 2019-04-23 20:45 | NUR ---
PT HAD LARGE BOWEL MOVEMENT. PT CLEANED AND REPOSITIONED.
--- NOTE | 2019-04-23 21:30 | NUR ---
PT HAD LARGE BOWEL MOVEMENT. PT CLEANED AND REPOSITIONED.
--- NOTE | 2019-04-23 22:34 | NUR ---
[facility] AT BEDSIDE.
--- NOTE | 2019-04-23 22:35 | NUR ---
Patient discharged with v/s stable. Written and verbal after care instructions given and explained. Patient alert verbalized understanding of instructions. Discharged back tp facility via [facility]. All questions addressed prior to discharge. ID band removed. Patient advised to follow up with PMD. Rx of YEN CRISTINA, MEDROL PACK given. Patient educated on indication of medication including possible reaction and side effects. Opportunity to ask questions provided and answered.
--- NOTE | 2019-04-23 22:42 | NUR ---
PT TAKEN BY [facility] [place] [facility]
[2019-04-23 22:44] VITALS: BP 113/61
== END 2019-04-23 22:42 | disposition home or self-care (01) ==
LOC: MED 15:18
DX: E11.22 Type 2 diabetes mellitus with diabetic chronic kidney disease (principal); I12.9 Hypertensive chronic kidney disease with stage 1 through stage 4 chronic kidney disease, or unspecified chronic kidney disease; N18.9 Chronic kidney disease, unspecified; E87.5 Hyperkalemia; D64.9 Anemia, unspecified; J40 Bronchitis, not specified as acute or chronic; Z79.82 Long term (current) use of aspirin; Z79.899 Other long term (current) drug therapy; W18.30XA Fall on same level, unspecified, initial encounter; Y93.89 Activity, other specified; Y92.129 Unspecified place in nursing home as the place of occurrence of the external cause; Y99.8 Other external cause status
CPT/HCPCS: 36415; 70450; 71045; 72125; 80048; 80053; 81003; 82948; 85025; 94640; 96374; 96375; 99284; J1815; J7613; Q0092

== ENCOUNTER 2019-07-15 14:44 | Inpatient (IN) | payer OTHER ==
[~2019-07-15] VITALS: Ht 167.6 cm; Wt 77.1 kg
[2019-07-15 14:58] VITALS: BP 97/42
[2019-07-15] MEDS ORDERED: NACL 0.9% 1,000 ML IV ONE (15:16)
[2019-07-15] MEDS ORDERED: NACL 0.9% 1,000 ML IV SCH (15:16)
[2019-07-15] MEDS ORDERED: ONDANSETRON 4 MG/2 ML VIAL IVP ONE (15:20)
[2019-07-15] MEDS ORDERED: FAMOTIDINE 20 MG/2 ML VIAL IVP ONE (15:20)
--- NOTE | 2019-07-15 15:20 | NUR ---
DR. LEE AT BEDSIDE
--- NOTE | 2019-07-15 15:20 | NUR ---
GARCIA CATHETER INSERTED, IMMEDIATE RETURN OF CLEAR YELLOW URINE, PT TOLERATED PROCEDURE WELL.
[2019-07-15] MEDS ORDERED: LOSA50TA66 PO (15:23)
[2019-07-15] MEDS ORDERED: FURO-570 PO (15:23)
[2019-07-15] MEDS ORDERED: ASCO-770 PO (15:23)
[2019-07-15] MEDS ORDERED: CRAN450T5 PO (15:23)
[2019-07-15] MEDS ORDERED: HYDR-5122 PO (15:23)
[2019-07-15] MEDS ORDERED: CELE100C PO (15:23)
[2019-07-15] MEDS ORDERED: DOCU-299 PO (15:23)
--- NOTE | 2019-07-15 15:30 | NUR ---
BIBA FROM [facility] [place] W C/O 4 EPISODES OF VOMITING TODAY. PT DENIES CP/SOB/PAIN. PT STATES HER L KNEE HURTS 06/22 BUT IT IS A CHRONIC ISSUE FOR HER. PT IS BLIND IN BOTH EYES. ABD ROUND, FIRM, DISTENDED, NOT TENDER TO PALPATION. BOWEL SOUNDS PRESENT X4, LBM TODAY. PT DENIES NAUSEA AT THIS TIME. PT A & O X2, 2LPM O2 VIA NASAL CANNULA. SIDE RAIL UP X2 FOR PT SAFTEY, BED IN LOWEST POSITION.
--- NOTE | 2019-07-15 15:30 | NUR ---
Note undone in EDM - 07/15/19 at 1557 by [email or web address] BIBA FROM [facility] W C/O 4 EPISODES OF VOMITING TODAY. PT DENIES CP/SOB/PAIN. PT STATES HER L KNEE HURTS 06/22 BUT IT IS A CHRONIC ISSUE FOR HER. PT IS BLIND IN BOTH EYES. ABD ROUND, FIRM, DISTENDED, NOT TENDER TO PALPATION. BOWEL SOUNDS PRESENT X4, LBM TODAY. PT DENIES NAUSEA AT THIS TIME. PT A & O X4, 2LPM O2 VIA NASAL CANNULA. SIDE RAIL UP X2 FOR PT SAFTEY, BED IN LOWEST POSITION.
--- NOTE | 2019-07-15 15:43 | NUR ---
PT LEFT TO CT
[2019-07-15 15:58] LABS: BASOPHILS % (AUTO) 0.2 % (0.0-2.0); EOSINOPHILS # (AUTO) 0.3 K/uL (0-0.4); EOSINOPHILS % (AUTO) 2.1 % (0.0-4.0); HEMATOCRIT 31.3 % (36-48); LYMPHOCYTES # (AUTO) 1.3 K/uL (2.5-16.5); LYMPHOCYTES % (AUTO) 8.8 % (20.5-51.1); MEAN CORPUSCULAR HEMOGLOBIN 29 pg (27-31); MEAN CORPUSCULAR HGB CONC 32 g/dL (33-37); MEAN CORPUSCULAR VOLUME 91.6 fL (80-94); MONOCYTES # (AUTO) 0.6 K/uL (0.8-1.0); MONOCYTES % (AUTO) 4.2 % (1.7-9.3); NEUTROPHILS # (AUTO) 12.6 K/uL (1.8-7.7); NEUTROPHILS % (AUTO) 84.7 % (42.2-75.2); PLATELET COUNT (AUTO) 320 K/uL (140-450); RED BLOOD CELL COUNT(AUTO) 3.41 MIL/uL (4.20-5.40); RED CELL DISTRIBUTION WIDTH 14.2 % (11.6-13.7); WHITE BLOOD COUNT (AUTO) 14.9 K/uL (4.8-10.8)
--- NOTE | 2019-07-15 15:59 | NUR ---
PT RETURNED FROM CT
[2019-07-15 16:04] LABS: APPEARANCE,URINE CLOUDY (CLEAR); BILIRUBIN,URINE NEGATIVE (NEGATIVE); BLOOD, URINE NEGATIVE (NEGATIVE); COLOR,URINE YELLOW (YELLOW); LEUKOCYTE ESTERASE ,URINE NEGATIVE (NEGATIVE); NITRITE, URINE NEGATIVE (NEGATIVE); PH,URINE 5.5 (5.0-9.0); UGLUCOSE NEGATIVE (NEGATIVE)
[2019-07-15 16:10] LABS: RBC,URINE NONE SEEN /HPF (0-5)
[2019-07-15 16:31] LABS: ANION GAP 15.6 (8-16); CARBON DIOXIDE 22.3 mmol/L (21-32); CHLORIDE 107 mmol/L (98-107); CREATININE 2.1 mg/dL (0.6-1.3); GLUCOSE 115 mg/dL (74-106); POTASSIUM 4.9 mmol/L (3.5-5.1); SODIUM SERUM 140 mmol/L (136-145); UREA NITROGEN, BLOOD 38 mg/dL (7-18)
[2019-07-15 16:35] LABS: ALBUMIN 2.6 g/dL (3.4-5.0); ASPARTATE AMINOTRANSFERASE 13 U/L (15-37); TOTAL BILIRUBIN 0.2 mg/dL (0.0-1.0)
[2019-07-15] MEDS ORDERED: cefTRIAXone 1,000 MG VIAL ONE (16:55)
--- NOTE | 2019-07-15 17:00 | NUR ---
PT RESTING IN BED, NO NEW NEEDS AT THIS TIME.
[2019-07-15] MEDS ORDERED: HYDROcodone/APAP 7.5/325 MG 1 TAB PO PRN (17:10)
[2019-07-15] MEDS ORDERED: ACETAMINOPHEN 325 MG TAB PO PRN (17:10)
[2019-07-15] MEDS ORDERED: ONDANSETRON 4 MG/2 ML VIAL IVP PRN (17:10)
--- NOTE | 2019-07-15 17:40 | NUR ---
RECEIVED PT FROM EMERGENCY ROOM NURSE SHAREE FOR CONTINUITY OF CARE. PT IN STABLE CONDITION. RESPIRATIONS EVEN AND UNLABORED. IV INTACT AND PATENT. SAFETY MEASURES IN PLACE. BED IN LOW POSITION. BED ALARM ON. PT ORIENTED TO ROOM AND CALL LIGHT. WILL CONTINUE TO MONITOR.
--- NOTE | 2019-07-15 17:40 | NUR ---
B/P 115/42, HR 64, T 98.0, SPO2 95% ROOM AIR, RESP 18
[2019-07-15 17:53] LABS: PROTHROMBIN TIME 9.8 secs (10.8-13.4)
[2019-07-15 17:56] LABS: FREE T4 (FREE THYROXINE) 0.79 ng/dL (0.76-1.46); PHOSPHORUS 4.1 mg/dL (2.5-4.9); THYROID STIMULATING HORMONE 1.69 uIU/mL (0.34-3.74)
--- NOTE | 2019-07-15 17:57 | NUR ---
Patient will be admitted to care of [facility]. Admited to TELEMETRY. Will go to room 127-B. Belongings list completed. Report to DEVIN ALEXANDER.
--- NOTE | 2019-07-15 18:00 | NUR ---
ORDERED DINNER PLATE FROM [facility].
--- NOTE | 2019-07-15 19:25 | NUR ---
GAVE REPORT TO SOUNDSCRIBER MECHANIC NURSE KISSWENDY FOR CONTINUITY OF CARE. PT IN STABLE CONDITION.
--- NOTE | 2019-07-15 19:30 | NUR ---
RECEIVED BEDSIDE REPORT FROM DAY SHIFT NURSE. PATIENT IS AWAKE AND COOPERATIVE. ADMITTING DIAGNOSIS VOMITING, CKD WITH UREMIA, AND ABNORMAL LABS. RESPIRATION EVEN UNLABORED ON ROOM AIR. NO DISTRESS NOTED. SKIN IS WARM AND DRY. IV PATENT AND INTACT. COMPLAINED OF LEG PAIN 04/22. WILL ADMINISTER PAIN MED. HEART RATE REGULAR. S1&S2 NOTED. LUNGS SOUNDS CLEAR ON AUSCULTATION. BOWEL SOUNDS PRESENTS IN ALL QUADRANTS. ABDOMEN SOFT AND NON-TENDER. LAST BM 07/14/19. OBTAINED PAST MEDICAL HISTORY FROM [facility]. PATIENT IS LEGALLY BLIND. ORIENT TO THE STAFF, ROOM, AND CALL LIGHT. PLAN OF CARE WAS DISCUSSED. ALL SAFETY MEASURES IN PLACE. BED IS AT LOW POSITION. CALL LIGHT WITHIN REACH. WILL CONTINUE TO MONITOR.
[2019-07-15 20:00] VITALS: BP 99/54
--- NOTE | 2019-07-15 20:00 | NUR ---
VITALS WERE TAKEN. GARCIA CATHETER NOTED DRAINING YELLOW URINE. PATIENT COMPLAINED OF LEG PAIN. WILL CONTINUE TO MONITOR.
[2019-07-15] MEDS ORDERED: CARISOPRODOL 350 MG TAB PO PRN ×2 (20:20→21:00)
[2019-07-15] MEDS: HYDROcodone/APAP 5/325 MG 1 TAB TAB PO SCH (20:25)
[2019-07-15] MEDS: METOPROLOL 50 MG TAB PO SCH (20:27)
--- NOTE | 2019-07-15 20:29 | NUR ---
PATIENT COMPLAINED OF LEG PAIN 04/22. SCHEDULED MEDS FOR PAIN MED GIVEN PER ORDER. WILL CONTINUE TO MONITOR.
[2019-07-15] MEDS ORDERED: SODIUM FERRIC GLUCONATE 125 MG in NACL 0.9% 100 ML IV SCH (20:30)
--- NOTE | 2019-07-15 20:30 | NUR ---
ALL SCHEDULED MEDS WERE GIVEN PER ORDER. NO ASE NOTED. WILL CONTINUE TO MONITOR.
[2019-07-15] MEDS ORDERED: CARISOPRODOL 350 MG PO SCH (21:00)
[2019-07-15] MEDS ORDERED: DOCUSATE SODIUM 100 MG GELCAP PO SCH (21:00)
[2019-07-15] MEDS ORDERED: CELECOXIB 100 MG CAP PO PRN (21:00)
[2019-07-15] MEDS ORDERED: INSULIN LISPRO SLIDING SCALE 100 UNITS/ML VIAL SUBQ PRN (21:05)
[2019-07-15] MEDS ORDERED: DEXTROSE 50% 50 ML SYR IVP PRN (21:05)
--- NOTE | 2019-07-15 21:45 | NUR ---
CHECKED PATIENT. PATIENT SLEEPING RESPIRATION EVEN UNLABORED ON ROOM AIR. NO DISTRESS NOTED. WILL CONTINUE TO MONITOR.
[2019-07-15] MEDS: NACL 0.9% 1,000 ML IV SCH (23:21)
[2019-07-16] VITALS (7 sets, daily range): BP systolic 118–175; BP diastolic 50–79
--- NOTE | 2019-07-16 | NUR ---
VITALS WERE TAKEN. PATIENT IN STABLE CONDITION. CALL LIGHT WITHIN REACH. WILL CONTINUE TO MONITOR.
--- NOTE | 2019-07-16 01:41 | NUR ---
PATIENT COMPLAINED OF LEG PAIN 8/. PRN PAIN MED ADMINISTERED PER ORDER. WILL CONTINUE TO MONITOR.
[2019-07-16] MEDS: HYDROmorphone 2 MG TAB PO PRN (03:23)
--- NOTE | 2019-07-16 03:26 | NUR ---
PATIENT IS CRYING, RESTLESS, COMPLAINING OF LEG PAIN 10/10. PRN PAIN MED ADMINISTERED PER ORDER. WILL CONTINUE TO MONITOR.
--- NOTE | 2019-07-16 03:36 | NUR ---
PATIENT HAD ONE EPISODE OF EMESIS, CLEAR LIQUID, 150CC. WILL CONTINUE TO MONITOR.
[2019-07-16] MEDS: BLOOD GLUCOSE MONITORING 1 DEV DEV FS SCH ×3 (06:15→17:12)
--- NOTE | 2019-07-16 07:05 | NUR ---
ENDORSED PATIENT TO DAY SHIFT NURSE FOR CONTINUITY OF CARE. PATIENT IN STABLE CONDITION
--- NOTE | 2019-07-16 07:06 | NUR ---
RECEIVED REPORT FROM ART INSTALLER NURSE ALLEY FOR CONTINUITY OF CARE. PT IN STABLE CONDITION. RESPIRATIONS EVEN AND UNLABORED. NO IV ACCESS AT THIS TIME. SAFETY MEASURES IN PLACE. BED IN LOW POSITION. BED ALARM ON. CALL LIGHT AT BEDSIDE. FREQUENT ROUNDS. WILL CONTINUE TO MONITOR.
[2019-07-16 07:11] LABS: BASOPHILS % (AUTO) 0.5 % (0.0-2.0); EOSINOPHILS # (AUTO) 0.6 K/uL (0-0.4); EOSINOPHILS % (AUTO) 6.4 % (0.0-4.0); HEMATOCRIT 29.7 % (36-48); HEMOGLOBIN 9.7 g/dL (12.0-16.0); LYMPHOCYTES # (AUTO) 1.5 K/uL (2.5-16.5); LYMPHOCYTES % (AUTO) 16.6 % (20.5-51.1); MEAN CORPUSCULAR HEMOGLOBIN 30 pg (27-31); MEAN CORPUSCULAR HGB CONC 33 g/dL (33-37); MEAN CORPUSCULAR VOLUME 92.3 fL (80-94); MONOCYTES # (AUTO) 0.5 K/uL (0.8-1.0); MONOCYTES % (AUTO) 5.1 % (1.7-9.3); NEUTROPHILS # (AUTO) 6.3 K/uL (1.8-7.7); NEUTROPHILS % (AUTO) 71.4 % (42.2-75.2); PLATELET COUNT (AUTO) 270 K/uL (140-450); RED BLOOD CELL COUNT(AUTO) 3.22 MIL/uL (4.20-5.40); RED CELL DISTRIBUTION WIDTH 14.1 % (11.6-13.7); WHITE BLOOD COUNT (AUTO) 8.8 K/uL (4.8-10.8)
[2019-07-16 07:12] LABS: ANION GAP 15.1 (8-16); CARBON DIOXIDE 21.5 mmol/L (21-32); CHLORIDE 108 mmol/L (98-107); GLUCOSE 91 mg/dL (74-106); POTASSIUM 4.6 mmol/L (3.5-5.1); SODIUM SERUM 140 mmol/L (136-145); UREA NITROGEN, BLOOD 32 mg/dL (7-18)
--- NOTE | 2019-07-16 08:06 | NUR ---
PT SITTING UP IN BED WITH LEGS OVER THE SIDE. PT PULLED OUT GARCIA CATHETER AT THIS TIME. PT DOES NOT C/O PAIN. CLEANED AND REPOSITIONED. WILL INFORM SHARRON RUEDA.
--- NOTE | 2019-07-16 08:10 | NUR ---
SHARRON RUEDA AT BEDSIDE AT THIS TIME. PT IN STABLE CONDITION.
--- NOTE | 2019-07-16 08:20 | NUR ---
DR. PINEDA ([facility]) AND DR. WONG AT BED SIDE AT THIS TIME. PT IN STABLE CONDITION.
--- NOTE | 2019-07-16 08:27 | NUR ---
PATIENT HAS BEEN SCREENED AND CATEGORIZED HIGH NUTRITION RISK. PATIENT WILL BE SEEN WITHIN 1-2 DAYS OF ADMISSION. 07/16/[address]
[2019-07-16] MEDS ORDERED: CARISOPRODOL 350 MG TAB PO PRN (08:32)
[2019-07-16] MEDS ORDERED: CELECOXIB 100 MG CAP PO SCH (09:00)
[2019-07-16] MEDS: ASPIRIN 81 MG TAB.CHEW PO SCH (09:15)
[2019-07-16] MEDS: DOCUSATE SODIUM 100 MG GELCAP PO SCH (09:16)
[2019-07-16] MEDS: CALCIUM CARB/VIT-D 500 MG/200 IU 1 TAB PO SCH (09:16)
[2019-07-16] MEDS: FUROSEMIDE 40 MG TAB PO SCH (09:16)
[2019-07-16] MEDS: amLODIPine 5 MG TAB PO SCH (09:16)
[2019-07-16] MEDS: HYDROcodone/APAP 5/325 MG 1 TAB TAB PO SCH ×2 (09:17→21:21)
[2019-07-16] MEDS: GABAPENTIN 100 MG CAP PO SCH ×3 (09:17→16:53)
[2019-07-16] MEDS: ASCORBIC ACID 500 MG TAB PO SCH (09:17)
--- NOTE | 2019-07-16 09:20 | NUR ---
GAVE ORDERED DUE MEDICATIONS AT THIS TIME. PT TOLERATED WELL. WILL CONTINUE TO MONITOR. BED IN LOW POSITION. BED ALARM ON. CALL LIGHT AT BEDSIDE.
[2019-07-16] MEDS: LACTOBACILLUS RHAMNOSUS GG 1 EACH CAP PO SCH (09:24)
[2019-07-16] MEDS: LOSARTAN 50 MG TAB PO SCH (09:25)
[2019-07-16] MEDS: METOPROLOL 50 MG TAB PO SCH ×2 (09:25→21:21)
[2019-07-16] MEDS: POLYVINYL ALCOHOL 1.4% OP 15 ML SOL OP SCH (09:26)
[2019-07-16] MEDS ORDERED: SODIUM FERRIC GLUCONATE 125 MG in NACL 0.9% 100 ML IV SCH (10:00)
--- NOTE | 2019-07-16 10:30 | NUR ---
NEW IV PLACED 20G RIGHT FOREARM. PT TOLERATED WELL. WILL CONTINUE TO MONITOR.
--- NOTE | 2019-07-16 12:13 | NUR ---
PT LYING IN BED SLEEP AT THIS TIME. RESPIRATIONS EVEN AND UNLABORED. BED IN LOW POSITION. BED ALARM ON. CALL LIGHT AT BEDSIDE. WILL CONTINUE TO MONITOR.
--- NOTE | 2019-07-16 13:06 | NUR ---
(07/16/19) RD INITIAL ASSESSMENT COMPLETED PLEASE REFER TO NUTRITION ASSESSMENT UNDER CARE ACTIVITY FOR ESTIMATED NUTRITIONAL NEEDS. RD RECOMMENDATIONS: 1. CONTINUE ON CCHO DIET TOLERATED. 2. CONSULT RDN PRN. 3. RD WILL F/U 3-5 DAYS; MODERATE RISK. AZRA VILLALOBOS MS, RDN
--- NOTE | 2019-07-16 14:24 | NUR ---
X-RAY AT BEDSIDE. PT IN STABLE CONDITION.
--- NOTE | 2019-07-16 16:00 | NUR ---
CLEANED AND REPOSITIONED AT THIS TIME. PT TOLERATED WELL. BED IN LOW POSITION. BED ALARM ON. CALL LIGHT AT BEDSIDE. WILL CONTINUE TO MONITOR.
--- NOTE | 2019-07-16 16:45 | NUR ---
PT C/O PAIN WITH IV FLUSH. NO INJURY AT SITE NOTED. PT REFUSED NEW IV INSERTION AT THIS TIME. PT STATED MAYBE LATER.
--- NOTE | 2019-07-16 19:29 | NUR ---
GAVE REPORT TO ROBOTYPE OPERATOR NURSE STACY FOR CONTINUITY OF CARE. PT IN STABLE CONDITION.
--- NOTE | 2019-07-16 19:31 | NUR ---
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 PT ON BEDREST. PT NOT IN RESPIRATORY DISTRESS HAS ORDER FOR O2 AT 2 LPM VIA NC BUT PATIENT REFUSED TO USE THE O2 AT THIS TIME. PT O2 SAT ON RA IS 98% O2. MODIFIED CODE- BIPAP ONLY. RECEIVED W/O IVF, IT WAS PREVIOUSLY ON HER RIGHT HAND BUT HAS BEEN DISLODGED BY PATIENT. FALL RISK PRECAUTION IN PLACE, POC REVIEWED, EXPLAINED PROCEDURES TO PT. WILL CONTINUE TO MONITOR Addendum: 07/16/19 at 2304 by Kesha Pruett RN KELLY WELLS " HAS ORDER FOR O2 AT 2LPM VIA NC"
[2019-07-16] MEDS: NACL 0.9% 1,000 ML IV SCH (21:30)
--- NOTE | 2019-07-16 21:50 | NUR ---
CLEANED PATIENT, CHANGED CHUX AND PT'S GOWN; VOIDED 1X
[2019-07-17] MEDS: HYDROmorphone 2 MG TAB PO PRN (00:11)
--- NOTE | 2019-07-17 00:11 | NUR ---
PT BP INCREASED= 175/79 ; HR 77 ,O2 SAT 94% RA; 98% DILAUDID GIVEN ORDERED. DR. DEL RIO AWARE
--- NOTE | 2019-07-17 01:24 | NUR ---
PT'S BP DECREASED TO 144/69 (map 94) ; HR 82; DR. DEL RIO SAW PT AT BEDSIDE. PT STILL WITH PAIN ON THE RIGHT KNEE OA, W/ ALFREDO TO GIVE CELEBREX Addendum: 07/17/19 at 0140 by Kesha Pruett RN AMEND TO LEFT KNEE OA
--- NOTE | 2019-07-17 03:14 | NUR ---
IV REINSERTION ATTEMPTED ON PATIENT; PT REFUSED TO HAVE THE IV INSERTION. PT SAID, "NO WAY"; DR. DEL RIO INFORMED
[2019-07-17 04:00] VITALS: BP 144/69
--- NOTE | 2019-07-17 04:50 | NUR ---
PT KEEP ON TAKING OFF ATTACHMENTS EG EKG LEADS, DRESSING GOWN; AND HER CHUX UNDERNEATH HER. EXPLAINED TO THE PT THE RISKS AND BENEFITS. NEEDS REINFORCEMENT
[2019-07-17 05:05] VITALS: BP 153/73
[2019-07-17] MEDS: BLOOD GLUCOSE MONITORING 1 DEV DEV FS SCH ×4 (05:11→21:34)
--- NOTE | 2019-07-17 06:50 | NUR ---
DR. DEL RIO AWARE THAT SPUTUM COULD NOT BE COLLECTED; INFORMED PT THE RISKS AND BENEFITS OF THE PROCEDURE. PT NEEDS REINFORCEMENT. PT IS CONFUSED
--- NOTE | 2019-07-17 06:52 | NUR ---
PT IN STABLE CONDITION.PT ASLEEP AT THIS TIME. NO SIGNS OF RESPIRATORY DISTRESS. FOR MONITORING OF PAIN OF LEFT KNEE. WILL ENDORSE TO NEXT SHIFT
--- NOTE | 2019-07-17 07:15 | NUR ---
RECEIVED PT FROM BUILDING MATERIALS SALES ATTENDANT NURSE SHERRI, PT IS AWAKE AND LYING ON THE BED WITH SIDE RAILS UP AND CALL LIGHT WITHIN REACH, PT HAS NI IV LINE AND HAS BEEN PULLED OUT PER ENDORSEMENT FROM [employer] SALES ATTENDANT -NURSE, PT DENIES PAIN AND IS BLIND ON BOTH EYES, NO SIGN OF DISTRESS NOTED AND WILL MONITOR PT.
[2019-07-17 08:00] VITALS: BP 127/65
[2019-07-17 08:07] LABS: FOLIC ACID 9.1 ng/mL (>3.0)
[2019-07-17] MEDS: LACTOBACILLUS RHAMNOSUS GG 1 EACH CAP PO SCH (08:55)
[2019-07-17] MEDS: POLYVINYL ALCOHOL 1.4% OP 15 ML SOL OP SCH (08:55)
[2019-07-17] MEDS: CALCIUM CARB/VIT-D 500 MG/200 IU 1 TAB PO SCH (08:55)
[2019-07-17] MEDS: DOCUSATE SODIUM 100 MG GELCAP PO SCH (08:56)
[2019-07-17] MEDS: HYDROcodone/APAP 5/325 MG 1 TAB TAB PO SCH ×2 (08:56→21:32)
[2019-07-17] MEDS: ASPIRIN 81 MG TAB.CHEW PO SCH (08:56)
[2019-07-17] MEDS: FUROSEMIDE 40 MG TAB PO SCH (08:57)
[2019-07-17] MEDS: GABAPENTIN 100 MG CAP PO SCH ×3 (08:57→17:11)
[2019-07-17] MEDS: ASCORBIC ACID 500 MG TAB PO SCH (08:57)
[2019-07-17] MEDS: amLODIPine 5 MG TAB PO SCH (08:58)
[2019-07-17] MEDS: METOPROLOL 50 MG TAB PO SCH ×2 (08:58→21:32)
[2019-07-17] MEDS: LOSARTAN 50 MG TAB PO SCH (08:58)
[2019-07-17] MEDS ORDERED: CYCLOBENZAPRINE 10 MG TAB PO ONE (09:10)
--- NOTE | 2019-07-17 10:00 | NUR ---
PT WAS CLEANED AND REPOSITIONED BY TOOL PROCUREMENT COORDINATOR. DENIES PAIN AND NO SIGN OF DISTRESS NOTED. WILL MONITOR PT.
--- NOTE | 2019-07-17 11:18 | NUR ---
CALLED [facility] SPOKE WITH MURPHY DIRECTOR OF [email or web address] NOTIFIED THE CT ABDOMEN FINDINGS , WILL DISCUSS IT WITH THE [employer] AND STAFF AND WILL CALL BACK. CM TO F/U.
[2019-07-17 12:00] VITALS: BP 158/54
--- NOTE | 2019-07-17 13:47 | NUR ---
*S.T. Bedside swallow eval completed* See report. Pt presents w/ moderate oral difficulty w/ solids c/b prolonged mastication of firm solids (pork chop) with diffuse oral residue after swallows and delayed pharyngeal swallow response as a result of prolonged mastication. Pt unable to feed self due to visual impairment and some confusion. Recommend: 1) Downgrade diet to mechanical soft ground diet, thin liquids okay. Straws okay. 2) P.O. meds okay whole one at a time. 3) 1:1 feeder w/ aspiration precautions. Pt does not present with clinical dysphagia. Therefore, no further tx is indicated. [facility]. Endorsed to DEVIN Price. Time [id number]
--- NOTE | 2019-07-17 13:56 | NUR ---
PT WAS GIVEN NEURONTIN NOW, WILL MONITOR PT.
--- NOTE | 2019-07-17 15:40 | NUR ---
PT REFUSED ECHO. DR. SHAW NOTIFIED.
[2019-07-17 16:00] VITALS: BP 130/58
[2019-07-17] MEDS ORDERED: cefTRIAXone 1,000 MG in LIDOCAINE MPF 1% 2.1 ML IM SCH (17:00)
--- NOTE | 2019-07-17 17:11 | NUR ---
PT WAS GIVEN SOMA AND NEURONTIN NOW. WILL MONITOR PT.
--- NOTE | 2019-07-17 17:21 | NUR ---
PT WAS KENNETH MCKOY NOW. WILL MONITOR PT.
--- NOTE | 2019-07-17 19:20 | NUR ---
RECEIVED ENDORSEMENT FROM AM SHIFT NURSE FOR CONTINUITY OF CARE. TELEMETRY PATIENT. ON BEDREST. CONFUSED BUT NO SIGNS AND SYMPTOMS OF ANY DISCOMFORT. ON CONTACT PRECAUTIONS. NO IV ACCESS. MD AWARE. BED ON LOW POSITION. CALL LIGHT WITHIN REACH. WILL CONTINUE TO MONITOR.
[2019-07-17 20:00] VITALS: BP 138/41
--- NOTE | 2019-07-17 20:30 | NUR ---
PATIENT RESTING IN BED. VISIBLE CHEST RISE AND FALL NOTED. NO DISTRESS NOTED. SAFETY ENSURED. WILL CONTINUE TO MONITOR.
[2019-07-17] MEDS: NACL 0.9% 1,000 ML IV SCH (21:30)
--- NOTE | 2019-07-17 21:35 | NUR ---
DUE MEDICATIONS GIVEN ORDERED. SAFETY ENSURED. WILL CONTINUE TO MONITOR.
--- NOTE | 2019-07-17 23:22 | NUR ---
ROUNDS DONE. PATIENT ASLEEP IN BED. VISIBLE CHEST RISE AND FALL NOTED. NO DISTRESS NOTED. BED IN LOW POSITION. CALL LIGHT WITHIN REACH. WILL CONTINUE TO MONITOR.
[2019-07-18] VITALS: BP 138/69
--- NOTE | 2019-07-18 01:20 | NUR ---
CHECKS DONE. PATIENT ASLEEP IN BED. NO DISTRESS NOTED. VISIBLE CHEST RISE AND FALL NOTED. SAFETY ENSURED.
--- NOTE | 2019-07-18 02:50 | NUR ---
PATIENT ASLEEP IN BED IN STABLE CONDITION. WILL CONTINUE TO MONITOR. SAFETY ENSURED.
[2019-07-18 04:00] VITALS: BP 153/77
--- NOTE | 2019-07-18 04:30 | NUR ---
PATIENT ASLEEP AT THIS TIME. NO SIGNS AND SYMPTOMS OF ANY DISCOMFORT NOTED.
--- NOTE | 2019-07-18 05:20 | NUR ---
ABLE TO START NEW IV ACCESS ON THE RIGHT HAND G 24. CLEAR AND PATENT.
--- NOTE | 2019-07-18 07:29 | NUR ---
ENDORSED TO AM SHIFT RN IN STABLE CONDITION.
--- NOTE | 2019-07-18 07:30 | NUR ---
RECEIVED REPORT FROM RECOVERY ROOM RN NURSE. PATIENT IS IN STABLE CONDITION, IN BED ALERT AND VERBALLY RESPONSIVE. RESPIRATION EVEN AND UNLABORED. IV INTACT AND PATENT TO RIGHT HAND 24G. BED IN LOW POSITION, SAFETY MEASURES IN PLACE. CALL LIGHT WITHIN REACH.
[2019-07-18 08:00] VITALS: BP 153/87
[2019-07-18 08:07] LABS: BASOPHILS % (AUTO) 0.4 % (0.0-2.0); EOSINOPHILS # (AUTO) 0.4 K/uL (0-0.4); EOSINOPHILS % (AUTO) 5.3 % (0.0-4.0); HEMATOCRIT 36.4 % (36-48); HEMOGLOBIN 11.8 g/dL (12.0-16.0); LYMPHOCYTES # (AUTO) 1.3 K/uL (2.5-16.5); LYMPHOCYTES % (AUTO) 16.8 % (20.5-51.1); MEAN CORPUSCULAR HEMOGLOBIN 29 pg (27-31); MEAN CORPUSCULAR HGB CONC 32 g/dL (33-37); MEAN CORPUSCULAR VOLUME 90.4 fL (80-94); MONOCYTES # (AUTO) 0.5 K/uL (0.8-1.0); MONOCYTES % (AUTO) 6.7 % (1.7-9.3); NEUTROPHILS # (AUTO) 5.3 K/uL (1.8-7.7); NEUTROPHILS % (AUTO) 70.8 % (42.2-75.2); PLATELET COUNT (AUTO) 318 K/uL (140-450); RED BLOOD CELL COUNT(AUTO) 4.03 MIL/uL (4.20-5.40); RED CELL DISTRIBUTION WIDTH 13.3 % (11.6-13.7); WHITE BLOOD COUNT (AUTO) 7.5 K/uL (4.8-10.8)
[2019-07-18 08:34] LABS: SODIUM SERUM 140 mmol/L (136-145)
[2019-07-18 08:35] LABS: ANION GAP 15.9 (8-16); CHLORIDE 104 mmol/L (98-107); GLUCOSE 97 mg/dL (74-106); POTASSIUM 3.9 mmol/L (3.5-5.1); UREA NITROGEN, BLOOD 34 mg/dL (7-18)
[2019-07-18 08:36] LABS: CREATININE 2.1 mg/dL (0.6-1.3); MAGNESIUM 3.8 mg/dL (1.8-2.4); PHOSPHORUS 1.8 mg/dL (2.5-4.9)
[2019-07-18] MEDS: POLYVINYL ALCOHOL 1.4% OP 15 ML SOL OP SCH (09:00)
[2019-07-18] MEDS: amLODIPine 5 MG TAB PO SCH (09:50)
--- NOTE | 2019-07-18 09:50 | NUR ---
AM MEDICATIONS GIVEN ORDERED. TOLERATED WELL. PATIENT IS ALERT WITH CONFUSION. NO DISTRESS NOTED. PATIENT'S HOB ELEVATED, SAFETY MEASURES IN PLACE. BED IN LOW POSITION. IV INTACT AND PATENT TO RIGHT HAND. WILL CONTINUE TO MONITOR PATIENT.
[2019-07-18] MEDS: CALCIUM CARB/VIT-D 500 MG/200 IU 1 TAB PO SCH (09:51)
[2019-07-18] MEDS: LOSARTAN 50 MG TAB PO SCH (09:51)
[2019-07-18] MEDS: GABAPENTIN 100 MG CAP PO SCH ×4 (09:51→17:00)
[2019-07-18] MEDS: DOCUSATE SODIUM 100 MG GELCAP PO SCH (09:51)
[2019-07-18] MEDS: ASPIRIN 81 MG TAB.CHEW PO SCH (09:51)
[2019-07-18] MEDS: HYDROcodone/APAP 5/325 MG 1 TAB TAB PO SCH ×2 (09:51→21:39)
[2019-07-18] MEDS: LACTOBACILLUS RHAMNOSUS GG 1 EACH CAP PO SCH (09:52)
[2019-07-18] MEDS: METOPROLOL 50 MG TAB PO SCH ×2 (09:52→21:39)
[2019-07-18] MEDS: ASCORBIC ACID 500 MG TAB PO SCH (10:00)
[2019-07-18] MEDS: FUROSEMIDE 40 MG TAB PO SCH (10:00)
[2019-07-18] MEDS: BLOOD GLUCOSE MONITORING 1 DEV DEV FS SCH ×2 (11:39→16:42)
[2019-07-18 12:00] VITALS: BP 132/81
--- NOTE | 2019-07-18 12:00 | NUR ---
VS STABLE. PATIENT IS IN BED WITH THE HOB, ELEVATED, AWAKE AND VERBALLY RESPONSIVE. NO ACUTE DISTRESS NOTED. REPOSITIONED FOR COMFORT. ALL NEEDS MET.
--- NOTE | 2019-07-18 15:00 | NUR ---
PATIENT DENIES ANY PAIN OR DISCOMFORT. IN BED, ASLEEP, EASILY AROUSABLE. RESPIRATION EVEN AND UNLABORED. IV INTACT AND PATENT TO RIGHT HAND.
[2019-07-18 16:00] VITALS: BP 101/61
--- NOTE | 2019-07-18 16:30 | NUR ---
BS CHECKED, 102. NO COVERAGE NEEDED.
[2019-07-18] MEDS: cefTRIAXone 1,000 MG in LIDOCAINE MPF 1% 2.1 ML IM SCH (17:13)
--- NOTE | 2019-07-18 19:15 | NUR ---
REPORT GIVEN TO DISTRICT CAPTAIN NURSE. PATIENT IN STABLE CONDITION.
--- NOTE | 2019-07-18 19:20 | NUR ---
RECEIVED REPORT FORM AM SHIFT NURSE FOR CONTINUITY OF CARE. TELEMETRY PATIENT. ON BED REST. CONFUSED BUT NO SIGNS AND SYMPTOMS OF DISCOMFORT. ON CONTACT PRECAUTIONS. WITH PIV ON RIGHT HAND 24G INFUSING WITH IVF. BED ON LOW POSITION. BED ALARM ON. CALL LIGHT WITHIN REACH. WILL CONTINUE TO MONITOR.
[2019-07-18 20:00] VITALS: BP 128/72
--- NOTE | 2019-07-18 21:04 | NUR ---
PATIENT AWAKE IN BED. RESTING COMFORTABLY. NO DISTRESS NOTED. WILL CONTINUE TO MONITOR.
[2019-07-18] MEDS: NACL 0.9% 1,000 ML IV SCH (21:30)
--- NOTE | 2019-07-18 23:00 | NUR ---
ROUNDS DONE. PATIENT AWAKE IN BED. ATTEMPTING TO GET OUT OF BED. REDIRECTED. SAFETY MEASURES IN PLACE. BED ALARM ON. BED ON LOW POSITION. WILL CONTINUE TO MONITOR.
[2019-07-19] VITALS: BP 144/56
--- NOTE | 2019-07-19 00:55 | NUR ---
PATIENT AWAKE IN BED. NO DISTRESS NOTED. WILL CONTINUE TO MONITOR.
[2019-07-19] MEDS ORDERED: traZODone 50 MG TAB PO SCH ×2 (01:00→21:00)
--- NOTE | 2019-07-19 02:00 | NUR ---
PT AWAKE, CONFUSED. IV PULLED OUT. IV SITE SLIGHTLY SWOLLEN. PT REFUSED TO HAVE ANOTHER IV LINE STARTED.
--- NOTE | 2019-07-19 02:30 | NUR ---
ROUNDS DONE. PATIENT ASLEEP IN BED. NO DISTRESS NOTED. BREATHING EVEN AND UNLABORED. BED IN LOW POSITION. BED ALARM ON. CALL LIGHT WITHIN REACH. WILL CONTINUE TO MONITOR.
--- NOTE | 2019-07-19 03:57 | NUR ---
CHECKS DONE. PATIENT ASLEEP IN BED. NO DISTRESS NOTED. BED IN LOW POSITION. BED ALARM ON. CALL LIGHT WITHIN REACH. WILL CONTINUE TO MONITOR.
[2019-07-19 04:00] VITALS: BP 133/62
--- NOTE | 2019-07-19 05:35 | NUR ---
MADE ROUNDS. PT SLEEPING WELL. NO S/S OF ANY DISCOMFORT NOTED. WILL CONTINUE TO MONITOR.
[2019-07-19] MEDS: BLOOD GLUCOSE MONITORING 1 DEV DEV FS SCH ×3 (06:06→16:30)
[2019-07-19 07:01] LABS: ANION GAP 16.4 (8-16); CARBON DIOXIDE 23.4 mmol/L (21-32); CHLORIDE 104 mmol/L (98-107); CREATININE 2.2 mg/dL (0.6-1.3); GLUCOSE 113 mg/dL (74-106); POTASSIUM 3.8 mmol/L (3.5-5.1); SODIUM SERUM 140 mmol/L (136-145); UREA NITROGEN, BLOOD 39 mg/dL (7-18)
[2019-07-19 07:05] LABS: MAGNESIUM 1.8 mg/dL (1.8-2.4); PHOSPHORUS 4.1 mg/dL (2.5-4.9)
--- NOTE | 2019-07-19 07:12 | NUR ---
ENDORSED PATIENT IN STABLE CONDITION TO ONCOMING AM SHIFT NURSE.
[2019-07-19 07:13] LABS: BASOPHILS % (AUTO) 0.4 % (0.0-2.0); EOSINOPHILS # (AUTO) 0.5 K/uL (0-0.4); EOSINOPHILS % (AUTO) 6.3 % (0.0-4.0); HEMATOCRIT 34.3 % (36-48); HEMOGLOBIN 11.1 g/dL (12.0-16.0); LYMPHOCYTES # (AUTO) 1.5 K/uL (2.5-16.5); LYMPHOCYTES % (AUTO) 19.2 % (20.5-51.1); MEAN CORPUSCULAR HEMOGLOBIN 29 pg (27-31); MEAN CORPUSCULAR HGB CONC 33 g/dL (33-37); MEAN CORPUSCULAR VOLUME 90.2 fL (80-94); MONOCYTES # (AUTO) 0.7 K/uL (0.8-1.0); MONOCYTES % (AUTO) 8.8 % (1.7-9.3); NEUTROPHILS # (AUTO) 5.3 K/uL (1.8-7.7); NEUTROPHILS % (AUTO) 65.3 % (42.2-75.2); PLATELET COUNT (AUTO) 353 K/uL (140-450); RED CELL DISTRIBUTION WIDTH 13.7 % (11.6-13.7); WHITE BLOOD COUNT (AUTO) 8.1 K/uL (4.8-10.8)
--- NOTE | 2019-07-19 07:20 | NUR ---
RECEIVED REPORT FROM AP OPERATOR NURSE ELBA FOR CONTINUITY OF CARE. RESPIRATIONS EVEN AND UNLABORED, ROOM AIR. NO IV ACCESS AT THIS TIME, DR. LAZAR PER PRIOR SHIFT. SAFETY MEASURES IN PLACE. BED IN LOW POSITION. BED ALARM ON. CALL LIGHT AT BEDSIDE. WILL CONTINUE TO MONITOR.
[2019-07-19 08:00] VITALS: BP 132/59
--- NOTE | 2019-07-19 08:00 | NUR ---
X-RAY AT BEDSIDE. PT IN STABLE CONDITION. WILL CONTINUE TO MONITOR.
[2019-07-19] MEDS: LACTOBACILLUS RHAMNOSUS GG 1 EACH CAP PO SCH (08:25)
[2019-07-19] MEDS: HYDROcodone/APAP 5/325 MG 1 TAB TAB PO SCH ×2 (08:25→21:04)
[2019-07-19] MEDS: CALCIUM CARB/VIT-D 500 MG/200 IU 1 TAB PO SCH (08:25)
[2019-07-19] MEDS: FUROSEMIDE 40 MG TAB PO SCH (08:25)
[2019-07-19] MEDS: ASPIRIN 81 MG TAB.CHEW PO SCH (08:26)
[2019-07-19] MEDS: POLYVINYL ALCOHOL 1.4% OP 15 ML SOL OP SCH (08:26)
[2019-07-19] MEDS: GABAPENTIN 100 MG CAP PO SCH ×3 (08:26→17:08)
[2019-07-19] MEDS: DOCUSATE SODIUM 100 MG GELCAP PO SCH (08:26)
[2019-07-19] MEDS: ASCORBIC ACID 500 MG TAB PO SCH (08:26)
[2019-07-19] MEDS: amLODIPine 5 MG TAB PO SCH (08:32)
[2019-07-19] MEDS: LOSARTAN 50 MG TAB PO SCH (08:32)
[2019-07-19] MEDS: METOPROLOL 50 MG TAB PO SCH ×2 (08:33→21:04)
--- NOTE | 2019-07-19 08:45 | NUR ---
GAVE ORDERED DUE MEDICATION AT THIS TIME. PT TOLERATED WELL. WILL CONTINUE TO MONITOR.
[2019-07-19] MEDS: cefTRIAXone 1,000 MG in LIDOCAINE MPF 1% 2.1 ML IM SCH (10:11)
--- NOTE | 2019-07-19 11:50 | NUR ---
CLEANED AND CHANGED SHEETS AFTER URINATION. PT TOLERATED WELL. BED IN LOW POSITION. BED ALARM ON. CALL LIGHT AT BEDSIDE. WILL CONTINUE TO MONITOR.
--- NOTE | 2019-07-19 15:26 | NUR ---
ASSISTED PT WITH BEDPAN. CLEANED AFTER URINATION. PT TOLERATED WELL. BED IN LOW POSITION. BED ALARM ON. CALL LIGHT AT BEDSIDE. WILL CONTINUE TO MONITOR.
--- NOTE | 2019-07-19 16:30 | NUR ---
PT REFUSED BLOOD SUGAR CHECK AT THIS TIME. PT IN STABLE CONDITION.
--- NOTE | 2019-07-19 19:15 | NUR ---
GAVE REPORT TO STAFF RADIATION THERAPIST NURSE LAMONT FOR CONTINUITY OF CARE. PT IN STABLE CONDITION.
--- NOTE | 2019-07-19 19:27 | NUR ---
REPORT RECEIVED FROM AM NURSE AT BEDSIDE. PT IN STABLE CONDITION. AAOX1-2. BOARD UPDATED. NO COMPLAINTS OF PAIN. NO SOB. AFEBRILE. PT IS BEDBOUND. PT IS LEGALLY BLIND. PT CURRENTLY HAS NO IV ACCESS DUE TO REMOVAL. AWARE. SKIN WARM, DRY, AND INTACT WITH NO OPEN WOUNDS. BED LOCKED IN LOW POSITION. CALL PRESSLEY WITHIN REACH. SAFETY PRECAUTION IN PLACE. ALL NEEDS MET AT THIS TIME.
[2019-07-19 20:00] VITALS: BP 154/68
--- NOTE | 2019-07-19 21:04 | NUR ---
NORCO, LOPRESSOR, AND TRAZODONE GIVEN PO. PT TOLERATED WELL.
[2019-07-19] MEDS: NACL 0.9% 1,000 ML IV SCH (21:27)
--- NOTE | 2019-07-19 23:10 | NUR ---
PT AWAKE AND ALERT EATING A SANDWICH. NO S/S OF DISTRESS NOTED. WILL CONTINUE TO MONITOR.
[2019-07-20] VITALS: BP 140/58
[2019-07-20] MEDS: MELATONIN 3 MG TAB PO PRN ×2 (00:26→01:28)
--- NOTE | 2019-07-20 00:30 | NUR ---
PT ASKED FOR SLEEPING MEDICATION THEN WHEN BROUGHT TO HER REFUSED THE MEDICATION. PT IS SEVERELY CONFUSED AND NON COMPLIANT. PT IS LEGALLY BLIND AND UNABLE TO AMBULATE AT THIS TIME. SHE IS SITTING ON THE EDGE OF THE BED BECAUSE SHE WANTS TO. WHEN TOLD TO GO BACK TO BED SHE REFUSED. EXPLAINED TO HER THAT GOING BACK TO BED IS FOR HER BENEFIT SO SHE DOES NOT ATTEMPT TO GET OUT OF BED OR FALL DUE TO PT IS A RISK FOR FALLS. SHE DOES NOT LISTEN AND STILL WANTS TO DO WHAT SHE WANTS TO DO. ATTEMPTED TWICE TO HELP HER TO BED BUT PT IS NON COMPLIANT.
--- NOTE | 2019-07-20 01:28 | NUR ---
MELATONIN GIVEN PO. PT TOLERATED WELL.
--- NOTE | 2019-07-20 03:19 | NUR ---
PT SLEEPING COMFORTABLY BUT AROUSABLE. NO S/S OF DISTRESS NOTED. WILL CONTINUE TO MONITOR.
[2019-07-20] MEDS: BLOOD GLUCOSE MONITORING 1 DEV DEV FS SCH ×3 (05:28→16:30)
--- NOTE | 2019-07-20 05:28 | NUR ---
BS 99. NO INSULIN COVERAGE NEEDED.
--- NOTE | 2019-07-20 06:35 | NUR ---
PT SLEEPING COMFORTABLY BUT AROUSABLE. NO S/S OF DISTRESS NOTED. PT IN STABLE CONDITION.
[2019-07-20 06:44] LABS: BASOPHILS % (AUTO) 0.5 % (0.0-2.0); EOSINOPHILS # (AUTO) 0.5 K/uL (0-0.4); EOSINOPHILS % (AUTO) 6.4 % (0.0-4.0); HEMATOCRIT 33.8 % (36-48); LYMPHOCYTES # (AUTO) 1.7 K/uL (2.5-16.5); LYMPHOCYTES % (AUTO) 20.6 % (20.5-51.1); MEAN CORPUSCULAR HEMOGLOBIN 30 pg (27-31); MEAN CORPUSCULAR HGB CONC 33 g/dL (33-37); MEAN CORPUSCULAR VOLUME 90.6 fL (80-94); MONOCYTES # (AUTO) 0.8 K/uL (0.8-1.0); MONOCYTES % (AUTO) 9.6 % (1.7-9.3); NEUTROPHILS # (AUTO) 5.2 K/uL (1.8-7.7); NEUTROPHILS % (AUTO) 62.9 % (42.2-75.2); PLATELET COUNT (AUTO) 337 K/uL (140-450); RED BLOOD CELL COUNT(AUTO) 3.73 MIL/uL (4.20-5.40); RED CELL DISTRIBUTION WIDTH 14.1 % (11.6-13.7); WHITE BLOOD COUNT (AUTO) 8.2 K/uL (4.8-10.8)
[2019-07-20 06:45] LABS: ANION GAP 15.3 (8-16); CARBON DIOXIDE 22.8 mmol/L (21-32); CHLORIDE 105 mmol/L (98-107); CREATININE 2.5 mg/dL (0.6-1.3); GLUCOSE 102 mg/dL (74-106); POTASSIUM 4.1 mmol/L (3.5-5.1); SODIUM SERUM 139 mmol/L (136-145); UREA NITROGEN, BLOOD 44 mg/dL (7-18)
--- NOTE | 2019-07-20 07:15 | NUR ---
RECEIVED REPORT FROM [employer] TEAM LEADER NURSE LAMONT FOR CONTINUITY OF CARE. RESPIRATIONS EVEN AND UNLABORED, ROOM AIR. NO IV ACCESS AT THIS TIME, DOCTOR IS AWARE. SAFETY MEASURES IN PLACE. BED IN LOW POSITION. BED ALARM ON. CALL LIGHT AT BEDSIDE. WILL CONTINUE TO MONITOR.
[2019-07-20 08:00] VITALS: BP 134/58
[2019-07-20] MEDS: GABAPENTIN 100 MG CAP PO SCH ×3 (08:12→17:00)
[2019-07-20] MEDS: LACTOBACILLUS RHAMNOSUS GG 1 EACH CAP PO SCH (08:12)
[2019-07-20] MEDS: ASCORBIC ACID 500 MG TAB PO SCH (08:13)
[2019-07-20] MEDS: HYDROcodone/APAP 5/325 MG 1 TAB TAB PO SCH (08:13)
[2019-07-20] MEDS: DOCUSATE SODIUM 100 MG GELCAP PO SCH (08:13)
[2019-07-20] MEDS: FUROSEMIDE 40 MG TAB PO SCH (08:13)
[2019-07-20] MEDS: ASPIRIN 81 MG TAB.CHEW PO SCH (08:14)
[2019-07-20] MEDS: LOSARTAN 50 MG TAB PO SCH (08:14)
[2019-07-20] MEDS: METOPROLOL 50 MG TAB PO SCH (08:14)
[2019-07-20] MEDS: amLODIPine 5 MG TAB PO SCH (08:14)
[2019-07-20] MEDS: CALCIUM CARB/VIT-D 500 MG/200 IU 1 TAB PO SCH (08:15)
[2019-07-20] MEDS: POLYVINYL ALCOHOL 1.4% OP 15 ML SOL OP SCH (08:16)
--- NOTE | 2019-07-20 08:39 | NUR ---
GAVE ORDERED DUE MEDICATIONS AT THIS TIME. PT VOMITED WATER ONLY AFTER TAKING MEDICATIONS. WILL INFORM RESIDENT. PT IN STABLE CONDITION. BED IN LOW POSITION. BED ALARM ON. CALL LIGHT AT BEDSIDE. WILL CONTINUE TO MONITOR.
[2019-07-20] MEDS: cefTRIAXone 1,000 MG in LIDOCAINE MPF 1% 2.1 ML IM SCH (10:14)
--- NOTE | 2019-07-20 10:15 | NUR ---
PT LYING IN BED SLEEPING AT THIS TIME. RESPIRATIONS EVEN AND UNLABORED. IV INTACT AND PATENT. BED IN LOW POSITION. BED ALARM ON. CALL LIGHT AT BEDSIDE. WILL CONTINUE TO MONITOR.
--- NOTE | 2019-07-20 12:25 | NUR ---
DC PLANNING: PATIENT IS GOING BACK TO [facility] [place] ROOM # [address] LUQUE . AUTH # FOR TRANSPORT FROM [facility] [id number] ARRANGED TRANSPORT WITH [facility] PH[facility] TECH TIME 5:30 PM
[2019-07-20 16:00] VITALS: BP 136/64
--- NOTE | 2019-07-20 16:14 | NUR ---
REPORT GIVEN TO NUBIA WILKES RAsael AT [facility]. ALL QUESTIONS ANSWERED AT THIS TIME.
--- NOTE | 2019-07-20 16:30 | NUR ---
PT REFUSED BLOOD SUGAR AT THIS TIME. PT CONFUSED STATING SHE NEEDS A SECOND OPINION.
--- NOTE | 2019-07-20 17:00 | NUR ---
PT REFUSED ORDERED DUE MEDICATION AT THIS TIME. PT LYING IN BED SLEEP, RESPIRATIONS EVEN AND UNLABORED.BED IN LOW POSITION. BED ALARM ON. CALL LIGHT AT BEDSIDE. WILL CONTINUE TO MONITOR.
--- NOTE | 2019-07-20 18:45 | NUR ---
GAVE DISCHARGE INSTRUCTIONS PT VERBALIZED UNDERSTANDING. PT CONFUSED AT THIS TIME. GAVE TRANSPORT INSTRUCTIONS TO TRANSPORT TEAM, ALL QUESTIONS ANSWERED AT THIS TIME. PT PLACED ON GURNEY IN STABLE CONDITION.
== END 2019-07-20 18:45 | DRG 177 ==
LOC: MED 14:44 → MMU 17:13 → MTU 22:07
PROVIDERS: ADMIT General Practice; ATTEND General Practice
DX: J69.0 Pneumonitis due to inhalation of food and vomit (principal); N17.0 Acute kidney failure with tubular necrosis; E43 Unspecified severe protein-calorie malnutrition; G93.41 Metabolic encephalopathy; R53.2 Functional quadriplegia; N39.0 Urinary tract infection, site not specified; I13.0 Hypertensive heart and chronic kidney disease with heart failure and stage 1 through stage 4 chronic kidney disease, or unspecified chronic kidney disease; I50.9 Heart failure, unspecified; H54.8 Legal blindness, as defined in USA; N18.9 Chronic kidney disease, unspecified; E11.22 Type 2 diabetes mellitus with diabetic chronic kidney disease; A05.9 Bacterial foodborne intoxication, unspecified; E83.51 Hypocalcemia; M17.12 Unilateral primary osteoarthritis, left knee; G30.9 Alzheimer's disease, unspecified; A08.4 Viral intestinal infection, unspecified; B96.20 Unspecified Escherichia coli [E. coli] as the cause of diseases classified elsewhere; F02.80 Dementia in other diseases classified elsewhere, unspecified severity, without behavioral disturbance, psychotic disturbance, mood disturbance, and anxiety; D64.9 Anemia, unspecified; K44.9 Diaphragmatic hernia without obstruction or gangrene; N28.1 Cyst of kidney, acquired; T19.2XXA Foreign body in vulva and vagina, initial encounter; X58.XXXA Exposure to other specified factors, initial encounter; Z68.30 Body mass index [BMI] 30.0-30.9, adult; Z87.891 Personal history of nicotine dependence; Y93.89 Activity, other specified; Y92.89 Other specified places as the place of occurrence of the external cause; Y99.8 Other external cause status
CPT/HCPCS: 36415; 36600; 71045; 80048; 80053; 81001; 82607; 82728; 82746; 82803; 82948; 83036; 83540; 83605; 83735; 83880; 84100; 84439; 84443; 84484; 85025; 85045; 85610; 85730; 87040; 87081; 87086; 87186; 92610; 93005; 96361; 96365; 96375; 99285; J0696; J1815; J2001; J2405; J2916; J3490; J7030; J7060; Q0092

== ENCOUNTER 2019-09-12 15:22 | Inpatient (IN) | payer OTHER ==
[~2019-09-12] VITALS: Ht 160 cm; Wt 77.6 kg
[~2019-09-12 15:22] MED LIST changes: -ACET-2619 PO; -ACET-9529 PO; +ASCO-770 PO; +CELE100C PO; +CRAN450T5 PO; +DOCU-299 PO; -DONE10TA10 PO; -DULO30EC PO; +FURO-570 PO; -GEMF600T6 PO; +HYDR-5122 PO; +LOSA50TA66 PO; -MECL-272 PO; -Milk Of Magnesia PO; -NITR0.4T52 SL; -ROC1PM IV; -TRAV5SOL OP; -VIC PO; -ZOLP10TA1 PO; -[UNRECOGNIZED DRUG - CODE] IM; -[UNRECOGNIZED DRUG - REMARK]
--- NOTE | 2019-09-12 15:22 | NUR ---
Patient [place] [facility] [place] transferred to bed 3. RN evaluating patient at bedside.
[2019-09-12 15:26] VITALS: BP 120/60
--- NOTE | 2019-09-12 15:29 | NUR ---
Dr. Bhakta is evaluating the patient at bedside.
[2019-09-12] MEDS ORDERED: DEXTROSE 50% 50 ML SYR IVP ONE (15:35)
--- NOTE | 2019-09-12 15:35 | NUR ---
89 YR OLD FEMALE BIB FROM [facility] [place] W C/O ALOC 3 HRS RAD TECH. PER [facility] WAS W/ PHYSICAL THERAPY 3HRS AGO AND FOUND ALOC X1 X 30 MIN AGO. LEGALLY BLIND . PATIENT AWAKE ,ALERT TRASPORTED BY EMS . CBS ,SCE . HX: COPD, DM, DIABETIC NEUROPATHY, HTN, DEMENTIA
--- NOTE | 2019-09-12 15:44 | NUR ---
XRAY AT BEDSIDE.
[2019-09-12 16:09] LABS: BASOPHILS # (AUTO) 0.1 K/uL (0.00-0.22); BASOPHILS % (AUTO) 0.7 % (0.0-2.0); EOSINOPHILS # (AUTO) 0.7 K/uL (0-0.4); EOSINOPHILS % (AUTO) 6.5 % (0.0-4.0); HEMATOCRIT 35.4 % (36-48); HEMOGLOBIN 11.4 g/dL (12.0-16.0); LYMPHOCYTES # (AUTO) 1.4 K/uL (2.5-16.5); LYMPHOCYTES % (AUTO) 13.1 % (20.5-51.1); MEAN CORPUSCULAR HEMOGLOBIN 29 pg (27-31); MEAN CORPUSCULAR HGB CONC 32 g/dL (33-37); MEAN CORPUSCULAR VOLUME 90.5 fL (80-94); MONOCYTES # (AUTO) 0.5 K/uL (0.8-1.0); MONOCYTES % (AUTO) 4.6 % (1.7-9.3); NEUTROPHILS # (AUTO) 7.8 K/uL (1.8-7.7); NEUTROPHILS % (AUTO) 75.1 % (42.2-75.2); PLATELET COUNT (AUTO) 354 K/uL (140-450); RED BLOOD CELL COUNT(AUTO) 3.92 MIL/uL (4.20-5.40); RED CELL DISTRIBUTION WIDTH 14.6 % (11.6-13.7); WHITE BLOOD COUNT (AUTO) 10.4 K/uL (4.8-10.8)
[2019-09-12] MEDS ORDERED: NACL 0.9% 1,000 ML IV ONE (16:20)
[2019-09-12 16:27] LABS: ANION GAP 17.1 (8-16); CARBON DIOXIDE 23.2 mmol/L (21-32); CHLORIDE 104 mmol/L (98-107); CREATININE 2.3 mg/dL (0.6-1.3); GLUCOSE 103 mg/dL (74-106); POTASSIUM 4.3 mmol/L (3.5-5.1); SODIUM SERUM 140 mmol/L (136-145); UREA NITROGEN, BLOOD 46 mg/dL (7-18)
[2019-09-12 16:33] LABS: ASPARTATE AMINOTRANSFERASE 9 U/L (15-37); TOTAL BILIRUBIN 0.3 mg/dL (0.0-1.0)
--- NOTE | 2019-09-12 16:43 | NUR ---
Patient taken to CT scan via gurney by Lysanda.
--- NOTE | 2019-09-12 16:45 | NUR ---
[facility] VIA [facility].
[2019-09-12] MEDS ORDERED: VANCOMYCIN 1GM/DEXT 5% PREMIX 200 ML IV ONE (16:50)
[2019-09-12] MEDS ORDERED: CEFEPIME 1,000 MG in DEXTROSE 5% 50 ML IV ONE (16:50)
[2019-09-12] MEDS ORDERED: VANCOMYCIN PER PHARMACY MC PRN (16:50)
--- NOTE | 2019-09-12 16:57 | NUR ---
Patient returned from CT scan.
--- NOTE | 2019-09-12 17:10 | NUR ---
meds not available at [facility] ,casting house laborer informed thru jose canales.
--- NOTE | 2019-09-12 17:40 | NUR ---
DEVIN LYONS SPOKE TO ELIGIBILITY EXAMINER REGARDING AVAILABILITY OF ORDERED ANTIBIOTICS.
[2019-09-12] MEDS ORDERED: VANCOMYCIN 1,000 MG VIAL ONE (17:57)
[2019-09-12] MEDS ORDERED: NACL 0.9% 1,000 ML IV SCH (18:11)
[2019-09-12] MEDS ORDERED: ZOLPIDEM 5 MG TAB PO PRN (18:15)
[2019-09-12] MEDS ORDERED: DOCUSATE SODIUM 100 MG GELCAP PO PRN (18:15)
[2019-09-12] MEDS ORDERED: LORazepam 2 MG/ML VIAL IM/IVP PRN (18:15)
[2019-09-12] MEDS ORDERED: ONDANSETRON 4 MG/2 ML VIAL IM/IVP PRN (18:15)
[2019-09-12] MEDS ORDERED: ACETAMINOPHEN 325 MG TAB PO PRN (18:15)
[2019-09-12] MEDS ORDERED: DOCU-299 PO (18:33)
[2019-09-12] MEDS ORDERED: ACET-1182 PO (18:33)
[2019-09-12] MEDS ORDERED: DONE10TA10 PO (18:33)
[2019-09-12] MEDS ORDERED: BISA-213 RC (18:33)
[2019-09-12] MEDS ORDERED: INSULIN LISPRO SLIDING SCALE 100 UNITS/ML VIAL SUBQ PRN (18:40)
[2019-09-12] MEDS ORDERED: DEXTROSE 50% 50 ML SYR IVP PRN (18:40)
[2019-09-12] MEDS ORDERED: ALBUTEROL SULFATE/IPRATROPIU 3 ML SOL IH PRN (18:40)
--- NOTE | 2019-09-12 18:45 | NUR ---
PT ARRIVED ON THE UNIT. PT AWAKE AND TALKING PT APPEARS STABLE AND IN NO APPARENT DISTRESS. ORIENTED PT TO THE ROOM AND UNIT. PLACED CALL LIGHT IN PATIENTS HAND. PT LEGALLY BLIND PLACED SIGN IN PATIENTS ROOM PT IS ON TELE MONITORING. IVF INFUSING IV SITE APPEARS PATENT AND IN NO APPARENT DISTRESS. ALL SAFETY MEASURES ARE IN PLACE WILL CONTINUE TO MONITOR
--- NOTE | 2019-09-12 18:50 | NUR ---
jose alonzo received report ,pt admitted at room 121b under the service of dr arredondo.
--- NOTE | 2019-09-12 19:05 | NUR ---
ENDORSED PT TO PM RN PT AWAKE IN BED PT APPEARS STABLE AND IN NO APPARENT DISTRESS ALL SAFETY MEASURES ARE IN PLACE ENDORSED PT AND ADMISSION TO PM RN
--- NOTE | 2019-09-12 19:06 | NUR ---
RECEIVED REPORT FROM AM SHIFT NURSE. PATIENT ALERT AND ORIENTED X2. NO APPARENT DISTRESS NOTED. ORIENTED TO ENVIRONMENT, HOSPITAL ROUTINE AND ROOMMATE. WITH PIV ON RIGHT FOREARM RUNNING IVF AND LEFT AC SALINE LOCKED, PATENT AND INTACT. BED ON LOW POSITION. BED ALARM ON. WILL CONTINUE TO MONITOR.
[2019-09-12 19:18] LABS: CHOL/HDL RATIO 7.1 (1-4.5); MAGNESIUM 2.4 mg/dL (1.8-2.4); PHOSPHORUS 4.5 mg/dL (2.5-4.9); PROTHROMBIN TIME 9.7 secs (10.8-13.4); THYROID STIMULATING HORMONE 1.82 uIU/mL (0.34-3.74)
[2019-09-12 19:30] VITALS: BP 127/52
[2019-09-12] MEDS ORDERED: PIPERACILLIN/TAZOBACTAM 3.375 GM in DEXTROSE 5% 50 ML IV SCH (20:30)
[2019-09-12] MEDS ORDERED: CARISOPRODOL 350 MG TAB PO SCH (21:00)
--- NOTE | 2019-09-12 21:05 | NUR ---
PATIENT ASLEEP IN BED. NO APPARENT DISTRESS NOTED. BED ON LOW POSITION. BED ALARM ON. WILL CONTINUE TO MONITOR.
[2019-09-12] MEDS: DOCUSATE SODIUM 100 MG GELCAP PO SCH (21:29)
[2019-09-12] MEDS: DONEPEZIL 10 MG TAB PO SCH (21:29)
[2019-09-12] MEDS: METOPROLOL 50 MG TAB PO SCH (21:30)
[2019-09-12] MEDS: BLOOD GLUCOSE MONITORING 1 DEV DEV FS SCH (21:39)
[2019-09-12] MEDS ORDERED: PIPERACILLIN/TAZOBACTAM 2.25 GM in DEXTROSE 5% 50 ML IV SCH (22:30)
--- NOTE | 2019-09-12 22:30 | NUR ---
CLARIFIED ROCEPHIN ORDER WITH MD. PER , D/C ROCEPHIN ORDER AND GIVE ZOSYN 2.25G INSTEAD. FOLLOWED-UP ORDER WITH PHARMACY.
[2019-09-12] MEDS ORDERED: PIPERACILLIN/TAZOBACTAM 2.25 GM VIAL IV ONE (22:38)
[2019-09-13] VITALS: BP 146/65
[2019-09-13] MEDS ORDERED: PIPERACILLIN/TAZOBACTAM 3.375 GM in DEXTROSE 5% 50 ML IV SCH ×2
--- NOTE | 2019-09-13 00:31 | NUR ---
PATIENT ASLEEP IN BED. NO APPARENT DISTRESS NOTED. VISIBLE CHEST RISE AND FALL NOTED. WILL CONTINUE TO MONITOR.
--- NOTE | 2019-09-13 02:05 | NUR ---
ROUNDS DONE. PATIENT ASLEEP IN BED. VISIBLE CHEST RISE AND FALL NOTED. NO APPARENT DISTRESS NOTED. WILL CONTINUE TO MONITOR.
[2019-09-13] MEDS: ALBUTEROL SULFATE/IPRATROPIU 3 ML SOL IH SCH ×3 (02:14→18:00)
[2019-09-13] MEDS: DEXT 5% /NACL 0.9% 1,000 ML IV SCH ×2 (02:40→18:34)
[2019-09-13 04:00] VITALS: BP 146/76
--- NOTE | 2019-09-13 04:01 | NUR ---
PATIENT ASLEEP IN BED. NO APPARENT DISTRESS NOTED. VISIBLE CHEST RISE AND FALL NOTED. BED ON LOW POSITION. WILL CONTINUE TO MONITOR.
--- NOTE | 2019-09-13 05:54 | NUR ---
PATIENT ASLEEP IN BED. NO APPARENT DISTRESS NOTED. VISIBLE CHEST RISE AND FALL NOTED. WILL CONTINUE TO MONITOR.
[2019-09-13 06:26] LABS: BILIRUBIN,URINE NEGATIVE (NEGATIVE); BLOOD, URINE NEGATIVE (NEGATIVE); COLOR,URINE YELLOW (YELLOW); LEUKOCYTE ESTERASE ,URINE 1+ (NEGATIVE); NITRITE, URINE POSITIVE (NEGATIVE); PH,URINE 6.5 (5.0-9.0); UGLUCOSE NEGATIVE (NEGATIVE)
[2019-09-13] MEDS: BLOOD GLUCOSE MONITORING 1 DEV DEV FS SCH ×4 (06:33→21:30)
--- NOTE | 2019-09-13 06:44 | NUR ---
CHECKS DONE. PATIENT ASLEEP IN BED. VISIBLE CHEST RISE AND FALL NOTED. BED ON LOW POSITION. BED ALARM ON. NO APPARENT DISTRESS NOTED. WILL ENDORSE TO AM SHIFT NURSE FOR CONTINUITY OF CARE.
[2019-09-13 07:02] LABS: BASOPHILS # (AUTO) 0.1 K/uL (0.00-0.22); EOSINOPHILS # (AUTO) 0.6 K/uL (0-0.4); EOSINOPHILS % (AUTO) 9.6 % (0.0-4.0); HEMATOCRIT 34.6 % (36-48); HEMOGLOBIN 11.2 g/dL (12.0-16.0); LYMPHOCYTES # (AUTO) 1.4 K/uL (2.5-16.5); LYMPHOCYTES % (AUTO) 22.6 % (20.5-51.1); MEAN CORPUSCULAR HEMOGLOBIN 29 pg (27-31); MEAN CORPUSCULAR HGB CONC 33 g/dL (33-37); MEAN CORPUSCULAR VOLUME 90.1 fL (80-94); MONOCYTES # (AUTO) 0.5 K/uL (0.8-1.0); MONOCYTES % (AUTO) 7.7 % (1.7-9.3); NEUTROPHILS # (AUTO) 3.6 K/uL (1.8-7.7); NEUTROPHILS % (AUTO) 59.1 % (42.2-75.2); PLATELET COUNT (AUTO) 312 K/uL (140-450); RED BLOOD CELL COUNT(AUTO) 3.84 MIL/uL (4.20-5.40); RED CELL DISTRIBUTION WIDTH 14.4 % (11.6-13.7); WHITE BLOOD COUNT (AUTO) 6.1 K/uL (4.8-10.8)
[2019-09-13 07:21] LABS: APPEARANCE,URINE SLIGHTLY HAZY (CLEAR)
[2019-09-13 07:22] LABS: RBC,URINE 0-5 /HPF (0-5)
--- NOTE | 2019-09-13 07:25 | NUR ---
RECEIVED BEDSIDE REPORT FROM NIGHT NURSE. PATIENT IS ASLEEP, EASILY AROUSABLE. RESPIRATIONS EVEN AND UNLABORED. IV INTACT TO RIGHT FOREARM WITH D5 NS INFUSING @ 60ML/HR. BED ALARM ON, BED IN LOW POSITION. SAFETY MEASURES IN PLACE. CALL LIGHT WITHIN REACH.
[2019-09-13 08:00] VITALS: BP 140/79
[2019-09-13] MEDS ORDERED: PIPER/TAZO 2.25GM/D5W PREMIX 50 ML IV SCH (08:00)
--- NOTE | 2019-09-13 08:45 | NUR ---
PT HAS BEEN SCREENED AND CATEGORIZED HIGH NUTRITION RISK. PT WILL BE SEEN WITHIN 1-2 DAYS OF ADMISSION. 09/13/19-09/14/[address]
[2019-09-13] MEDS ORDERED: FUROSEMIDE 40 MG TAB PO SCH (09:00)
[2019-09-13] MEDS ORDERED: GABAPENTIN 300 MG CAP PO SCH (09:00)
[2019-09-13] MEDS ORDERED: ASPIRIN 81 MG TAB.CHEW PO SCH (09:00)
[2019-09-13] MEDS: CALCIUM CARB/VIT-D 500 MG/200 IU 1 TAB PO SCH (09:00)
[2019-09-13] MEDS ORDERED: DEXTRAN OP SCH (09:00)
[2019-09-13] MEDS: METOPROLOL 50 MG TAB PO SCH ×2 (09:00→21:32)
[2019-09-13] MEDS ORDERED: HYPROMELLOSE OP SCH (09:00)
[2019-09-13] MEDS ORDERED: AMLODIPINE BESYLATE 10 MG PO SCH (09:00)
[2019-09-13] MEDS ORDERED: LACTOBACILLUS RHAMNOSUS GG 1 EACH CAP PO SCH (09:00)
[2019-09-13] MEDS ORDERED: CELECOXIB 100 MG CAP PO SCH (09:00)
--- NOTE | 2019-09-13 09:00 | NUR ---
PATIENT REFUSED HER MEDICATIONS AT THIS TIME WILL ATTEMPT AGAIN LATER.
--- NOTE | 2019-09-13 09:20 | NUR ---
PATIENT KEPT YELLING, SCREAMING, AND BANGING ON HER BED RAILS WITH THE CALL LIGHT EVEN AFTER ASSISTING AND HELPING THE PATIENT WITH HER NEEDS.
[2019-09-13] MEDS: DOCUSATE SODIUM 100 MG GELCAP PO SCH ×2 (10:08→21:32)
[2019-09-13] MEDS: amLODIPine 5 MG TAB PO SCH (10:09)
[2019-09-13] MEDS: LOSARTAN 50 MG TAB PO SCH (10:09)
--- NOTE | 2019-09-13 10:10 | NUR ---
PATIENT IS ALERT AND AWAKE WITH CONFUSION. PATIENT YELLS, REQUIRES REDIRECTION AND ORIENTATION. PATIENT AGREED TO TAKE MEDICATIONS. AM MEDICATIONS TOLERATED WELL. NO S/S OF DISTRESS NOTED AT THIS TIME. BED ALARM ON. BED IN LOW POSITION. ALL SAFETY MEASURES PROVIDED.
[2019-09-13] MEDS: LACTOBACILLUS RHAMNOSUS GG 1 EACH CAP PO SCH (10:13)
[2019-09-13] MEDS: PIPERACILLIN/TAZOBACTAM 2.25 GM in DEXTROSE 5% 50 ML IV SCH ×3 (11:09→23:00)
[2019-09-13 12:00] VITALS: BP 154/56
--- NOTE | 2019-09-13 12:30 | NUR ---
PATIENT ALERT AND VERBALLY RESPONSIVE. CONTINUES TO GRAB HER CALL LIGHT AND BANG ON THE BED RAILS ASKING FOR HELP. ASSISTED PATIENT WITH CARE. ENCOURAGED NOT TO GRAB CALL LIGHT AND BANG OH THE BED RAILS. PATIENT DID NOT VERBALIZE UNDERSTANDING. NO S/S OF DISTRESS NOTED. BED ALARM ON AND BED IN LOW POSITION.
[2019-09-13] MEDS: MORPHINE SULFATE 2 MG/ML SYR IVP PRN (13:01)
--- NOTE | 2019-09-13 14:15 | NUR ---
PT CONTINUES TO REFUSE BREATHING TXS. STATES SHE IS FEELS FINE. SHE SOUNDS CLEAR BILATERALLY. O2 SATURATION IS 97% ON RA. HR 67. WILL TRY AGAIN IN A LATER TIME.
--- NOTE | 2019-09-13 14:30 | NUR ---
PATIENT IS ASLEEP, EASILY AROUSABLE. NO S/S OF DISTRESS NOTED. IV INTACT AND PATENT TO LEFT AC WITH D5NS INFUSING @ 60ML/HR. IV INTACT AND PATENT TO RFA SALINE LOCK. SAFETY MEASURES IN PLACE.
[2019-09-13] MEDS ORDERED: PIPERACILLIN/TAZOBACTAM 2.25 GM in DEXTROSE 5% 50 ML IV SCH (16:00)
--- NOTE | 2019-09-13 16:00 | NUR ---
OBSERVED PATIENT GETTING OUT OF BED. ENCOURAGED PATIENT TO WAIT FOR ASSISTANCE BEFORE GETTING OUT OF BED. PATIENT WAS ALSO PULLING ON HER IV LINE ON THE LEFT AC WHILE TRYING TO GET OUT OF BED. PATIENT PULLED OUT IV TO LEFT AC. BLEEDING CONTROLLED. WILL ATTEMPT TO INSERT IV. Addendum: 09/13/19 at 1728 by Yeyo Bond RN ADDITION TO NOTES: IVF D5NS NOW INFUSING @60ML/HR VIA THE RIGHT FOREARM IV.
--- NOTE | 2019-09-13 16:30 | NUR ---
RFA IV INFILTRATED, PATIENT WAS PULLING ON THE IVF TUBINGS. WILL ATTEMPT TO REINSERT ANOTHER IV.
--- NOTE | 2019-09-13 17:00 | NUR ---
PATIENT REFUSED IV INSERTION. NOTIFIED DR. LEMON. UNABLE TO ADMINISTER IV ANTIBIOTICS AT THIS TIME DUE TO NO IV ACCESS.
--- NOTE | 2019-09-13 17:15 | NUR ---
PATIENT REFUSED TO HAVE IV INSERTION. EDUCATED PATIENT. PATIENT DOES NOT COMPREHEND. WILL NOTIFY RESIDENT DOCTOR.
[2019-09-13] MEDS ORDERED: OLANZapine 2.5 MG TAB PO SCH (17:25)
--- NOTE | 2019-09-13 18:51 | NUR ---
CURRENTLY STILL HAVE NO IV ACCESS. WILL ENDORSE TO DEPUTY ATTORNEY GENERAL NURSE. PATIENT IS IN STABLE CONDITION.
--- NOTE | 2019-09-13 19:00 | NUR ---
RECEIVED PT FROM DAY SHIFT NURSE PT IS AAOX2 HX DEMENTIA NO IV AXCCESS PT REFUSED IV INSERTION;, REPOSITIONED INITIAL ASSESSMENT DONE
[2019-09-13 20:00] VITALS: BP 151/68
--- NOTE | 2019-09-13 21:00 | NUR ---
PT COMBATIVE WHEN I TRY TO INSERT IV , SHE REFUSED IV INSERTION BLOOD SUGAR TEST 128
[2019-09-13] MEDS: DONEPEZIL 10 MG TAB PO SCH (21:31)
[2019-09-14] VITALS: BP 142/63
--- NOTE | 2019-09-14 | NUR ---
PT SLEEPING WELL NOT DISTRESS NOTED AND IS AWARE PT REFKUSED IV INSERTION ON TELMETRY SR
[2019-09-14] MEDS: HYDROcodone/APAP 5/325 MG 1 TAB TAB PO PRN ×4 (01:35→22:10)
[2019-09-14 04:00] VITALS: BP 157/84
--- NOTE | 2019-09-14 04:00 | NUR ---
SPONGE ZUNIGA GIVEN LINEN CHANGED ON TELEMETRY SR REPOSITIONED Q2H
[2019-09-14] MEDS: PIPERACILLIN/TAZOBACTAM 2.25 GM in DEXTROSE 5% 50 ML IV SCH ×2 (05:00→11:00)
[2019-09-14] MEDS: BLOOD GLUCOSE MONITORING 1 DEV DEV FS SCH ×4 (06:36→20:28)
--- NOTE | 2019-09-14 06:45 | NUR ---
PT REFUSED IV INSERTION DR LAZAR, BLOOD SUGAR TEST 87 . PT WILL BE ENDORSED TO DAY SHIFT NURSED FOR CONTINUE OF CARE
--- NOTE | 2019-09-14 07:15 | NUR ---
Received report from PM nurseNazia. Pt is asleep, no signs of distress, bed at lowest position, call light within reach, no IV, pt on fall precautions, on room air, and skin intact.
[2019-09-14 08:00] VITALS: BP 176/91
[2019-09-14 08:15] LABS: BASOPHILS % (AUTO) 0.5 % (0.0-2.0); EOSINOPHILS # (AUTO) 0.5 K/uL (0-0.4); EOSINOPHILS % (AUTO) 6.6 % (0.0-4.0); HEMATOCRIT 35.2 % (36-48); HEMOGLOBIN 11.3 g/dL (12.0-16.0); LYMPHOCYTES # (AUTO) 1.3 K/uL (2.5-16.5); LYMPHOCYTES % (AUTO) 17.1 % (20.5-51.1); MEAN CORPUSCULAR HEMOGLOBIN 29 pg (27-31); MEAN CORPUSCULAR HGB CONC 32 g/dL (33-37); MEAN CORPUSCULAR VOLUME 90.4 fL (80-94); MONOCYTES # (AUTO) 0.6 K/uL (0.8-1.0); MONOCYTES % (AUTO) 7.4 % (1.7-9.3); NEUTROPHILS # (AUTO) 5.1 K/uL (1.8-7.7); NEUTROPHILS % (AUTO) 68.4 % (42.2-75.2); PLATELET COUNT (AUTO) 307 K/uL (140-450); RED BLOOD CELL COUNT(AUTO) 3.89 MIL/uL (4.20-5.40); RED CELL DISTRIBUTION WIDTH 14.5 % (11.6-13.7); WHITE BLOOD COUNT (AUTO) 7.5 K/uL (4.8-10.8)
[2019-09-14] MEDS: CALCIUM CARB/VIT-D 500 MG/200 IU 1 TAB PO SCH (08:59)
[2019-09-14] MEDS: METOPROLOL 50 MG TAB PO SCH ×2 (08:59→20:41)
[2019-09-14] MEDS: DOCUSATE SODIUM 100 MG GELCAP PO SCH ×2 (08:59→20:41)
[2019-09-14] MEDS: LOSARTAN 50 MG TAB PO SCH (08:59)
[2019-09-14] MEDS: LACTOBACILLUS RHAMNOSUS GG 1 EACH CAP PO SCH (08:59)
[2019-09-14] MEDS: amLODIPine 5 MG TAB PO SCH (09:00)
[2019-09-14 09:01] LABS: ANION GAP 16.6 (8-16); CHLORIDE 108 mmol/L (98-107); GLUCOSE 92 mg/dL (74-106); POTASSIUM 3.6 mmol/L (3.5-5.1); SODIUM SERUM 143 mmol/L (136-145); UREA NITROGEN, BLOOD 30 mg/dL (7-18)
[2019-09-14 09:04] LABS: MAGNESIUM 2.2 mg/dL (1.8-2.4); PHOSPHORUS 3.2 mg/dL (2.5-4.9)
--- NOTE | 2019-09-14 09:15 | NUR ---
AM MEDS ADMINISTERED, PT TOLERATED WELL. PT IS ASKING FOR EYE DROPS, SPECIFICALLY ARTIFICIAL TEARS. MD MADE AWARE AND ORDERED THE EYE DROPS, WAITING FOR THEM FROM THE PHARMACY.
--- NOTE | 2019-09-14 09:16 | NUR ---
PT MADE AWARE THAT SHE HAS AN IV ZOSYN COMING UP, BUT SHE DOES NOT HAVE AN IV. PT STATES THAT SHE DOESN'T WANT AN IV INSERTED RIGHT NOW, AND TO "ASK HER LATER". WILL TRY AGAIN LATER.
[2019-09-14] MEDS: ALBUTEROL SULFATE/IPRATROPIU 3 ML SOL IH SCH ×3 (09:20→18:57)
--- NOTE | 2019-09-14 09:23 | NUR ---
RECEIVED PATIENT ON ROOM AIR, PULSE OX SAT 98%. NO SOB NOTED. PATIENT REFUSED BREATHING TREATMENT AT THIS TIME. NO ACUTE RESPIRATORY DISTRESS NOTED. WILL CONTINUE TO MONITOR.
--- NOTE | 2019-09-14 09:25 | NUR ---
RT came to give breathing treatment to pt, but pt refused. RT was able to get oxygen saturation and respiratory assessment.
--- NOTE | 2019-09-14 09:35 | NUR ---
PT, Bree, came to evaluate pt, but pt was not following directions. PT was only able to get vitals.
[2019-09-14] MEDS: POLYVINYL ALCOHOL 1.4% OP 15 ML SOL OP PRN ×3 (09:50→18:41)
--- NOTE | 2019-09-14 09:50 | NUR ---
Pt was complaining of dry eyes. PRN artificial tears were administered. Pt claimed her eyes "felt better."
--- NOTE | 2019-09-14 10:20 | NUR ---
Educated pt about the need for IV antibiotics, but pt refused IV insertion again. She said to ask her again later, and maybe she will say yes. Pt stated she wanted to rest for now. Pt is lying right lateral, on room air, bed in lowest position, call light within reach.
--- NOTE | 2019-09-14 10:41 | NUR ---
PT IS BEING CLEANED, CHANGED, AND REPOSITIONED AT THIS TIME. BED LINENS CHANGED.
--- NOTE | 2019-09-14 10:52 | NUR ---
Pt refused IV insertion for antibiotic administration. Dr. Liao made aware.
--- NOTE | 2019-09-14 10:57 | NUR ---
[facility] Note: Basic Screen: Yes High Risk DC Screen Yes Name: RYLIE ALVAREZ Home Relationship: DAUGHTER Pre-Admission Living Arrangements: SNF Prior ADL Needs Assistance Current Home Health Name/Tel: N/A Current DME/02 Name/Tel: [employer] Current Hospice Name/Tel: N/A Current Dialysis Name/Tel: N/A Healthcare Decision Maker: Next of Kin Advance Directive No Physician Orders for Life Sustaining Treatment Form Yes Discipline: Case Mgt/Social Svcs Tentative Discharge Plan/Destination: SNF/ECF Will require assistance post discharge: No Referred to Portable Irrigation Operator: No Tentative Discharge Plan Summary: Patient is a 89-year-old female admitted for pneumonia. Patient has PMHX of DM, HTN, CHF, dementia, and blindness. Patient was admitted from [facility]. SW contacted Jayda from [facility] [phone]. Per Jayda, patient is a [facility] patient and is currently on a bed hold. Jayda stated that patient has no advanced directive on file but patient's healthcare decision maker is daughter Rylie Alvarez [phone]. Jayda reported that patient needs assitance with ADLs at baseline. Jayda stated that patient's tentative discharge plan is for patient to return to [facility]. No further needs identified. Signature: SHIRA Klein Date: Sep 14, 2019 Time: 10:55
--- NOTE | 2019-09-14 11:25 | NUR ---
FNS came by to assess her diet and what foods she can tolerate. FNS is recommending glucerna.
--- NOTE | 2019-09-14 11:37 | NUR ---
PT'S BLOOD GLUCOSE IS 75. ORANGE JUICE OFFERED. PT AGREED TO DRINK SOME ORANGE JUICE. WILL CONTINUE TO MONITOR. PT IS IS NO ACUTE DISTRESS AT THIS TIME.
[2019-09-14] MEDS: DEXT 5% /NACL 0.9% 1,000 ML IV SCH (11:50)
[2019-09-14 12:00] VITALS: BP 142/56
--- NOTE | 2019-09-14 12:50 | NUR ---
PT C/O 8/10 BLE PAIN. PRN NORCO ADMINISTERED. WILL REASSESS PT WITHIN AN HOUR
--- NOTE | 2019-09-14 13:00 | NUR ---
Pt consumed only jell-o and 50 mls of glucerna and 50 mls apple juice. Pt has no appetite for other foods and wants to rest and listen to the television. Bed at lowest position, low miramontes's, call light within reach, and bed alarm activated.
--- NOTE | 2019-09-14 13:34 | NUR ---
09/14/19 RD INITIAL ASSESSMENT COMPLETED PLEASE REFER TO NUTRITION ASSESSMENT UNDER CARE ACTIVITY FOR ESTIMATED NUTRITIONAL NEEDS. 1. CONTINUE CCHO 60GM DIET TOLERATED 2. RECOMMEND GLUCERNA ONCE DAILY 3. RD PROVIDED VERBAL NUTRITION EDUCATION FOR DIABETES 4. ENCOURAGED INCREASING PO INTAKE 5. RD TO FOLLOW-UP 3-5 DAYS, MODERATE RISK DONNA PHILLIPS RD
--- NOTE | 2019-09-14 13:57 | NUR ---
Dr. Bush talked to pt about inserting an IV for antibiotic administration. Pt refused, so Dr. Bush allowed her to take her antibiotics PO. Pt agreed. Pt continues to rest and listen to the television. Call light within reach, bed alarm activated, left lateral, lowest position.
--- NOTE | 2019-09-14 14:00 | NUR ---
PATIENT SLEEPING; BREATHING TREATMENT NOT ADMINISTERED AT THIS TIME. RESPIRATIONS EVEN AND UNLABORED. NO ACUTE DISTRESS NOTED. WILL CONTINUE TO MONITOR.
[2019-09-14] MEDS: CEPHALEXIN 500 MG CAP PO SCH ×2 (14:29→20:51)
--- NOTE | 2019-09-14 14:47 | NUR ---
Pt requested for eye drops because of her dry eyes. Administered artificial tears PRN.
[2019-09-14 16:00] VITALS: BP 146/73
--- NOTE | 2019-09-14 16:15 | NUR ---
Pt requested to use the commode. Educated the pt on the risk of falling if we allow her to get out of bed. Pt still insisted to get out of bed with assistance. After scant amount of urine, provided perineal care and assisted her back to bed.
--- NOTE | 2019-09-14 18:09 | NUR ---
Pt complained of lower left knee, dull pain at a 6/10. PRN norco was administered. Will reassess pain.
--- NOTE | 2019-09-14 18:48 | NUR ---
Pt complained of dry eyes and requested for eye drops. Administered PRN artificial tears.
--- NOTE | 2019-09-14 19:05 | NUR ---
Endorsed report to PM nurse, Nazia. Pt was receiving breathing treatment from RT at this time at bedside. Pt on room air, bed at lowest position, semi-miramontes's, listening to the television, call light within reach, fall precautions in place.
--- NOTE | 2019-09-14 19:10 | NUR ---
RECEIVED PT FROM DAY SHIFT NURSE PT IS AAOX2 ON TELEMETRY SR , NOT IV ACCESS PT UN COOPERTIVE TO FOLLOW DR ORDERS
[2019-09-14 20:00] VITALS: BP 119/55
[2019-09-14] MEDS ORDERED: LIDOCAINE MPF 1% 5 ML ONE (20:32)
[2019-09-14] MEDS ORDERED: cefTRIAXone 1,000 MG VIAL ONE (20:32)
[2019-09-14] MEDS: DONEPEZIL 10 MG TAB PO SCH (20:40)
[2019-09-14] MEDS ORDERED: cefTRIAXone 1,000 MG in LIDOCAINE MPF 1% 2.1 ML IM SCH (21:00)
--- NOTE | 2019-09-14 21:30 | NUR ---
BLOOD SUGAR TEST 108 NOT COVERAGE PT ASSISTED TO ET HE HS SNACK
[2019-09-15] VITALS: BP 146/61
--- NOTE | 2019-09-15 | NUR ---
PT MAKING A LOT OF NOISES HEATING THE CALL LIGHT, SHE IS CONFUSED AND SHE IS REPOSITIONED ON TEL SR
[2019-09-15 04:00] VITALS: BP 136/59
--- NOTE | 2019-09-15 04:00 | NUR ---
SPONGE BATH GIVEN LINEN CHANGED, ON TELE SR NOT DISTRESS NOTED
[2019-09-15] MEDS: DEXT 5% /NACL 0.9% 1,000 ML IV SCH ×2 (04:30→23:12)
[2019-09-15] MEDS: BLOOD GLUCOSE MONITORING 1 DEV DEV FS SCH ×4 (06:09→21:00)
--- NOTE | 2019-09-15 06:25 | NUR ---
BLOOD SUGAR TEST 87 PT SLEEPING AT THIS TIME ON TELE SR, PT WILL BE ENDODRSED TO DAY SHIFT NURSE FOR CONTINUE OF CARE
--- NOTE | 2019-09-15 07:10 | NUR ---
RECEIVED BEDSIDE REPORT FROM HAND OR MACHINE PASTER NURSE NORMAN. PT IS ASLEEP, NO S/S OF DISTRESS, NO SOB. PT IS ON ROOM AIR. SKIN IS INTACT. NO IV SITE, PT HAS BEEN REFUSING. FALL PRECAUTIONS IN PLACE. CALL LIGHT IS WITHIN REACH. WILL CONTINUE TO MONITOR.
[2019-09-15] MEDS: ALBUTEROL SULFATE/IPRATROPIU 3 ML SOL IH SCH ×3 (07:21→18:00)
--- NOTE | 2019-09-15 07:25 | NUR ---
PT REFUSED HHN TX. NO SOB OR DISTRESS NOTED. RN IN ROOM AND AWARE.
[2019-09-15 08:00] VITALS: BP 128/65
[2019-09-15] MEDS: METOPROLOL 50 MG TAB PO SCH ×2 (09:00→21:00)
[2019-09-15] MEDS: LOSARTAN 50 MG TAB PO SCH (10:27)
[2019-09-15] MEDS: DOCUSATE SODIUM 100 MG GELCAP PO SCH ×2 (10:27→22:31)
[2019-09-15] MEDS: LACTOBACILLUS RHAMNOSUS GG 1 EACH CAP PO SCH (10:28)
[2019-09-15] MEDS: amLODIPine 5 MG TAB PO SCH (10:29)
[2019-09-15] MEDS: CALCIUM CARB/VIT-D 500 MG/200 IU 1 TAB PO SCH (10:29)
--- NOTE | 2019-09-15 10:41 | NUR ---
AM MEDS ADMINISTERED WITH APPLE SAUCE. PT TOLERATED WELL.
--- NOTE | 2019-09-15 11:45 | NUR ---
PT IS AGITATED AND YELLING OUT, AND BANGING ON THE BED RAIL WITH HER TELEMETRY BOX AND CALL LIGHT. THE NURSE AND POKER ROOM MANAGER ATTENDED TO HER NEEDS, BUT PT IS STILL AGITATED. SHE WAS CLEANED AND CHANGED 1.5 HOURS AGO, BUT IS COMPLAINING THAT SHE HASN'T BEEN CHANGED YET. NURSE ATTEMPTED TO REDIRECT AND REORIENT THE PT, BUT PT SEEMS TO BE FORGETFUL.
--- NOTE | 2019-09-15 14:25 | NUR ---
DC PLANNING 89 YRS OLD FEMALE PATIENT WAS ADMITTED FROM [facility] WITH A DX OF PNEUMONIA ,METABOLIC ENCEPHALOPATHY. PT HAS A HX OF DM, HTN, CHF, BLINDNESS AND DEMENTIA . CT OF HEAD (-). ADMINISTERED IVF , RT PROTOCOL BLOOD AND URINE CULTURE PENDING. CXR BORDERLINE CARDIOMEGALY. SEEN BY GREGORIO JUAREZ CONTINUE ROCEPHIN IV DAILY . DC PLAN TO GO BACK TO [facility] WHEN STABLE CM TO FOLLOW Addendum: 09/15/19 at 1551 by Heydi Still CM DC PLANNING CALLED [facility] SPOKE WITH NOE TO GET AUTH FOR TRANSPORT FOR WEDNESDAY. NOE PROVIDED THE AUTH FOR TRANSPORT [id number]. Addendum: 09/16/19 at 1017 by Heydi Still DC PLANNING CALL [facility] [phone] SPOKE WITH JAIR BED CONTROL ,PATIENT HAS A DC ORDER FOR TOMORROW 09/17/19 . PT CAN GO TO ROOM 15B ,ARRANGED TRANSPORT WITH [employer] [phone] PROVIDED AUTH # [id number]. NUCLEAR MEDICINE CHIEF TECHNOLOGIST TIME 1300
--- NOTE | 2019-09-15 14:43 | NUR ---
PT HAD A BM. PT WAS CLEANED AND CHANGED, BED LINENS CHANGED.
[2019-09-15 16:00] VITALS: BP 138/59
[2019-09-15] MEDS: HYDROcodone/APAP 5/325 MG 1 TAB TAB PO PRN (16:01)
[2019-09-15] MEDS: MORPHINE SULFATE 2 MG/ML SYR IVP PRN ×2 (16:28→22:28)
--- NOTE | 2019-09-15 16:33 | NUR ---
PT CRYING AND MOANING IN PAIN, C/O 10/10 BLE PAIN. PT IS AGITATED AND TRYING TO CLUMB OUT OF BED. PT WAS TOLD THAT SHE NEEDS TO HAVE AN IV TO HAVE STRONGER PAIN MEDICINE. PT WAS COMPLIANT WITH GETTING AN IV INSERTED. R WRIST [address] PRN IV MORPHINE ADMINISTERED. WILL REASSESS WITHIN AN HOUR.
--- NOTE | 2019-09-15 17:30 | NUR ---
PT IS SLEEPING COMFORTABLY. NO S/S OF DISTRESS, NO BEHAVIOR OUTBURSTS AT THIS TIME.
--- NOTE | 2019-09-15 19:25 | NUR ---
ENDORSED PT TO AGRICULTURAL SYSTEMS SPECIALIST NURSE IN STABLE CONDITION
--- NOTE | 2019-09-15 19:29 | NUR ---
PATIENT REFUSED HHNTX. PT BS ARE CLEAR BILAT AND ROOM AIR SATS 97%. NO SOB NOTED
--- NOTE | 2019-09-15 19:30 | NUR ---
RECEIVED ENDORSEMENT FROM DAYSHIFT RN NURSE AT BEDSIDE FOR CONTINUITY OF CARE, PT IN STABLE CONDITION.
[2019-09-15 20:00] VITALS: BP 129/46
--- NOTE | 2019-09-15 20:00 | NUR ---
PT IN BED ALL FALLS PRECAUTIONS IN PLACE. SHE IS AOX1, NO S/S OF PAIN OR DISTRESS NOTED. SKIN INTACT , SHE HAS AN IV SITE ON LEFT WRIST 22 GAUGE INTACT AND FLUSHED PATENT. V/S FOLLOWS: T 98.5 P 72 R 18 B/P 129/46 02 96% ON ROOM AIR. FINGERSTICK IS 96, NO HUMALOG COVERAGE NEEDED. ALL FALLS PRECAUTIONS IN PLACE .
--- NOTE | 2019-09-15 20:30 | NUR ---
PT WAS TURNED, CLEANED AND REPOSITIONED IN BED ALL FALLS PRECAUTIONS IN PLACE.
[2019-09-15] MEDS ORDERED: cefTRIAXone 1,000 MG in LIDOCAINE MPF 1% 2.1 ML IM SCH (21:00)
--- NOTE | 2019-09-15 21:30 | NUR ---
PT GIVEN ORDERED ARICEPT, COLACE AND HEPARIN. PT GIVEN EDUCATION REGARDING MEDICATION INCLUDING SIDE EFFECTS,. REINFORCEMENT NEEDED. LOPRESSOR HELD DUE TO PARAMETERS. ROCEPHIN IM SHOT GIVEN WELL. PT HAS D5 1/2 NS RUNNING AT 60MLS/HR ORDERED. ALL FALLS PRECAUTIONS IN PLACE AND CALL PRESSLEY IN REACH.
[2019-09-15] MEDS ORDERED: cefTRIAXone 1,000 MG VIAL ONE ×2 (22:17→22:20)
[2019-09-15] MEDS ORDERED: LIDOCAINE MPF 1% 5 ML ONE (22:20)
[2019-09-15] MEDS: DONEPEZIL 10 MG TAB PO SCH (22:31)
--- NOTE | 2019-09-15 23:00 | NUR ---
PT GIVEN IVP/PRN MORPHINE FOR SEVERE PAIN IN LEGS. WILL MONITOR FOR EFFECT.
[2019-09-16] VITALS: BP 107/71
--- NOTE | 2019-09-16 | NUR ---
PT WAS TURNED, CLEANED AND REPOSITIONED IN BED V/S FOLLOW; T 98.2 P 72 R 18 B/P 107/71 02 99% ON ROOM AIR. ALL FALLS PRECAUTIONS IN PLACE IV FLUID RUNNING ORDERED.
--- NOTE | 2019-09-16 04:14 | NUR ---
PT IN BED SLEEPING NO S/S OF PAIN OR DISTRESS NOTED, IV SITE INTACT AND RUNNING FLUIDS ORDERED. ALL FALLS PRECAUTIONS IN PLACE AND FREQUENT ROUNDS PROVIDED .
--- NOTE | 2019-09-16 06:00 | NUR ---
PT FINGERSTICK IS 98 NO HUMALOG COVERAGE NEEDED. PT IN IN BED WITH ALL FALLS PRECAUTIONS IN PLACE. NO S/S OF PAIN OR DISTRESS NOTED.
[2019-09-16] MEDS: BLOOD GLUCOSE MONITORING 1 DEV DEV FS SCH ×4 (06:10→21:00)
[2019-09-16] MEDS: ALBUTEROL SULFATE/IPRATROPIU 3 ML SOL IH SCH ×3 (07:22→19:15)
--- NOTE | 2019-09-16 07:30 | NUR ---
Received report from pm nurse Yanira. Pt resting in bed, awake, no c/o pain at this time. Right hand IV intact with ongoing D5NS @ 60ml/h. Bed alarm on. Call light within reach.
--- NOTE | 2019-09-16 07:35 | NUR ---
Informed by applications systems engineer that pt refused blood draw. Spoke to pt re: benefits of routine blood draw. Pt states "it's all baloney. I don't want to." Dr Taylor notified.
[2019-09-16 08:00] VITALS: BP 140/76
[2019-09-16] MEDS: LOSARTAN 50 MG TAB PO SCH (09:00)
[2019-09-16] MEDS: CALCIUM CARB/VIT-D 500 MG/200 IU 1 TAB PO SCH (09:00)
[2019-09-16] MEDS: DOCUSATE SODIUM 100 MG GELCAP PO SCH ×2 (09:00→22:13)
[2019-09-16] MEDS: amLODIPine 5 MG TAB PO SCH (09:00)
[2019-09-16] MEDS: METOPROLOL 50 MG TAB PO SCH ×2 (09:00→21:00)
[2019-09-16] MEDS: LACTOBACILLUS RHAMNOSUS GG 1 EACH CAP PO SCH (09:00)
--- NOTE | 2019-09-16 09:30 | NUR ---
Pt refused all am meds stating "i don't have any medical problems. Leave me alone." Explained benefits of meds & risks associated with med non-compliance. Dr Taylor in room to see pt, notified of refusing meds. Pt cont to refuse. PO meds wasted in pharm trash bin.
--- NOTE | 2019-09-16 09:35 | NUR ---
Received phone call from Rylie (daughter) inquiring how pt is. Informed of pt's non-compliance with meds & blood draw. Daughter verbalized understanding.
--- NOTE | 2019-09-16 11:30 | NUR ---
Renal Medicine Physician attempted to draw blood again but pt cont to refuse, yelling "i don't want it!" Dr Taylor notified.
[2019-09-16] MEDS: DEXT 5% /NACL 0.9% 1,000 ML IV SCH (12:13)
[2019-09-16] MEDS: MORPHINE SULFATE 2 MG/ML SYR IVP PRN (15:15)
[2019-09-16 16:00] VITALS: BP 138/57
[2019-09-16 16:34] LABS: BASOPHILS % (AUTO) 0.5 % (0.0-2.0); EOSINOPHILS # (AUTO) 0.3 K/uL (0-0.4); HEMOGLOBIN 11.4 g/dL (12.0-16.0); LYMPHOCYTES # (AUTO) 0.8 K/uL (2.5-16.5); LYMPHOCYTES % (AUTO) 12.1 % (20.5-51.1); MEAN CORPUSCULAR HEMOGLOBIN 29 pg (27-31); MEAN CORPUSCULAR HGB CONC 33 g/dL (33-37); MEAN CORPUSCULAR VOLUME 89.3 fL (80-94); MONOCYTES # (AUTO) 0.4 K/uL (0.8-1.0); MONOCYTES % (AUTO) 6.7 % (1.7-9.3); NEUTROPHILS % (AUTO) 75.7 % (42.2-75.2); PLATELET COUNT (AUTO) 317 K/uL (140-450); RED BLOOD CELL COUNT(AUTO) 3.92 MIL/uL (4.20-5.40); RED CELL DISTRIBUTION WIDTH 14.6 % (11.6-13.7); WHITE BLOOD COUNT (AUTO) 6.6 K/uL (4.8-10.8)
[2019-09-16 16:50] LABS: ANION GAP 14.8 (8-16); CARBON DIOXIDE 23.3 mmol/L (21-32); CHLORIDE 108 mmol/L (98-107); CREATININE 1.9 mg/dL (0.6-1.3); GLUCOSE 125 mg/dL (74-106); POTASSIUM 4.1 mmol/L (3.5-5.1); SODIUM SERUM 142 mmol/L (136-145); UREA NITROGEN, BLOOD 24 mg/dL (7-18)
[2019-09-16 17:08] LABS: MAGNESIUM 2.1 mg/dL (1.8-2.4); PHOSPHORUS 3.4 mg/dL (2.5-4.9)
--- NOTE | 2019-09-16 18:30 | NUR ---
Pt in high fowlers in bed, eating dinner. No signs of distress, respirations even & nonlabored. Call light within reach.
--- NOTE | 2019-09-16 19:15 | NUR ---
REPORT RECEIVED FORM DEEJAY RN AND JUAN MIGUEL RN DAYSHIFT NURSES AT BEDSIDE FOR CONTINUITY OF CARE, PT IN STABLE CONDITION. PT IN BED AOX 1-2 IV SITE ON R WRIST 22G INTACT AND RUNNING NORMAL SALINE AT 60MLS/HR. V/S FOLLOWS: T 98.1 P 102 R 18 B/P 144/74 02 96% ON ROOM AIR. ALL REQUESTED NEEDS ATTEND AND CROW PRESSLEY IN REACH.
--- NOTE | 2019-09-16 21:30 | NUR ---
PT RECEIVED ORDERED MEDICATION OF ARICEPT, COLACE AND HEPARIN PT PLATELETS IS 317. PT FINGERSTICK IS 112 NO HUMALOG COVERAGE . PT EDUCATION REGARDING MEDICATION AND DIAGNOSIS PROVIDED AT BEDSIDE, PT REINFORCEMENT IS NEEDED. ALL FALLS PRECAUTIONS IN PLACE AND CALL PRESSLEY IN REACH. DAUGHTER CALLED, JACOB, AND WAS UPDATED ON PT PLAN OF CARE, DAUGHTER VERBALIZED UNDERSTANDING.
[2019-09-16] MEDS: DONEPEZIL 10 MG TAB PO SCH (22:13)
--- NOTE | 2019-09-16 22:15 | NUR ---
PT WAS TURNED, CHANGED AND REPOSITIONED IN BED. GOWN CHANGED AND EXTRA BLANKETS PROVIDED REQUESTED. NO S/S OF PAIN OR DISTRESS NOTED AND ALL FALLS PRECAUTIONS IN PLACE.
--- NOTE | 2019-09-16 23:15 | NUR ---
ROCEPHIN HUNG AND RUNNING AT 100MLS/HR ORDERED , IV SITE ON R WRIST INTACT AND ASYMPTOMATIC. ALL FALLS PRECAUTIONS IN PLACE.
[2019-09-17] VITALS: BP 147/74
[2019-09-17] MEDS: POLYVINYL ALCOHOL 1.4% OP 15 ML SOL OP PRN (01:11)
[2019-09-17] MEDS: MORPHINE SULFATE 2 MG/ML SYR IVP PRN (01:16)
--- NOTE | 2019-09-17 01:30 | NUR ---
PT IN BED SHE WAS TURNED AND REPOSITIONED IN BED. PT REQUESTED ARTIFICIAL TEARS FOR DRY EYES AND MORPHINE FOR SEVERE PAIN IN LEG AND ARM. ALL REQUESTED NEEDS ATTENDED AND CALL PRESSLEY IN REACH. T 98.0 P 82 R 18 B/P 147/74 02 96% ON ROOM AIR. ALL FALLS PRECAUTIONS IN PLACE AND CALL PRESSLEY IN REACH.
[2019-09-17] MEDS: ALBUTEROL SULFATE/IPRATROPIU 3 ML SOL IH SCH (07:03)
[2019-09-17] MEDS: BLOOD GLUCOSE MONITORING 1 DEV DEV FS SCH ×2 (07:30→11:30)
[2019-09-17] MEDS: DEXT 5% /NACL 0.9% 1,000 ML IV SCH (07:30)
[2019-09-17] MEDS ORDERED: ROC1PM IV (07:51)
[2019-09-17] MEDS ORDERED: ASCO1CAP75 PO (07:52)
[2019-09-17 08:00] VITALS: BP 152/73
[2019-09-17] MEDS: DOCUSATE SODIUM 100 MG GELCAP PO SCH (09:48)
[2019-09-17] MEDS: METOPROLOL 50 MG TAB PO SCH (09:48)
[2019-09-17] MEDS: amLODIPine 5 MG TAB PO SCH (09:48)
[2019-09-17] MEDS: LACTOBACILLUS RHAMNOSUS GG 1 EACH CAP PO SCH (09:49)
[2019-09-17] MEDS: CALCIUM CARB/VIT-D 500 MG/200 IU 1 TAB PO SCH (09:49)
[2019-09-17] MEDS: LOSARTAN 50 MG TAB PO SCH (09:49)
--- NOTE | 2019-09-17 10:24 | NUR ---
CONTACTED JARI FROM [facility], ROOM VERIFIED (ROOM 15-B). CONTACTED CARY FROM [facility], CHEESE FACTORY WORKER TIME AT 1300 HRS VERIFIED. GRAHAM MADE AWARE.
--- NOTE | 2019-09-17 12:00 | NUR ---
Contacted pt's daughter, Rylie over the phone about pt's discharge plan to [facility] and continue IV antibiotic at SNF. Verbalized understanding of pt's plan of care.
--- NOTE | 2019-09-17 12:30 | NUR ---
Telephone report given to DEVIN Barnhart from [facility] regarding pt discharge plan of care.
--- NOTE | 2019-09-17 13:05 | NUR ---
Pt discharged by latesha COOPER transport to [facility]. All belongings with pt, right forearm IV 22G intact.
== END 2019-09-17 13:00 | DRG 177 ==
LOC: MED 15:22 → MTU 18:11
PROVIDERS: ADMIT General Practice; ATTEND General Practice
DX: J69.0 Pneumonitis due to inhalation of food and vomit (principal); G93.41 Metabolic encephalopathy; N17.0 Acute kidney failure with tubular necrosis; N39.0 Urinary tract infection, site not specified; E44.0 Moderate protein-calorie malnutrition; G30.9 Alzheimer's disease, unspecified; Z68.30 Body mass index [BMI] 30.0-30.9, adult; E11.9 Type 2 diabetes mellitus without complications; F02.80 Dementia in other diseases classified elsewhere, unspecified severity, without behavioral disturbance, psychotic disturbance, mood disturbance, and anxiety; H54.8 Legal blindness, as defined in USA; I11.0 Hypertensive heart disease with heart failure; I50.9 Heart failure, unspecified; Z87.891 Personal history of nicotine dependence; D64.9 Anemia, unspecified; E11.42 Type 2 diabetes mellitus with diabetic polyneuropathy; E78.5 Hyperlipidemia, unspecified; Z91.19 Patient's noncompliance with other medical treatment and regimen; E86.0 Dehydration
CPT/HCPCS: 36415; 70450; 71045; 80048; 80053; 81001; 82140; 82550; 82948; 83036; 83605; 83690; 83735; 83880; 84100; 84134; 84443; 84484; 85025; 85610; 85730; 87040; 87081; 87086; 93005; 93925; 93970; 94640; 96365; 96366; 96375; 97110; 97112; 97161-GP; 97530; 99285; C1758; G0482; J0696; J1644; J1815; J2001; J2270; J2543; J3370; J7030; J7042; J7060; J7620; Q0092

== ENCOUNTER 2019-09-28 12:00 | Emergency (ER) | payer OTHER ==
[~2019-09-28] VITALS: Ht 160 cm; Wt 74.0 kg
[2019-09-28 12:00] VITALS: BP 115/59
[~2019-09-28 12:00] MED LIST changes: +ACET-1182 PO; +ASCO1CAP75 PO; +BISA-213 RC; +DONE10TA10 PO; -HYDR2TAB6 PO; -LACT10CA PO; +ROC1PM IV
--- NOTE | 2019-09-28 12:00 | NUR ---
PT BIBA FROM [facility]
--- NOTE | 2019-09-28 12:05 | NUR ---
BIBA FROM [facility] C/O SOB X TODAY AND COUGH X 2 WEEKS WAS RECENTLY DIAGNOSED WITH PNEUMONIA LUNGS CLEAR BILATERALLY. RR 19, EVEN AND UNLABORED. AFEBRILE AT THIS TIME. PRODUCTIVE COUGH. PMH- COPD, DM, HF, DEMENTIA, ALZIEHMERS, L AND R EYE BLINDNESS, METABOLIC ENCHALOPATHY, OSTEOARTHRITIS
--- NOTE | 2019-09-28 12:06 | NUR ---
PT IS A POOR HISTORIAN DUE TO DEMENTIA AND ALZHIEMERS HISTORY
--- NOTE | 2019-09-28 12:12 | NUR ---
PLACED IN BED 2
--- NOTE | 2019-09-28 12:32 | NUR ---
DR DE LA TORRE AT BEDSIDE
[2019-09-28] MEDS ORDERED: AZITHROMYCIN 500 MG in DEXTROSE 5% 250 ML IV ONE (12:55)
[2019-09-28] MEDS ORDERED: AZITHROMYCIN 500 MG INJ VIAL IV ONE (13:07)
[2019-09-28] MEDS ORDERED: cefTRIAXone 1,000 MG VIAL ONE ×2 (13:08→13:10)
--- NOTE | 2019-09-28 13:25 | NUR ---
PATIENT REFUSES ABG SLIGHTLY COMBATIVE YUNIOR/RN
--- NOTE | 2019-09-28 13:34 | NUR ---
EMT AT BEDSIDE PERFORMING ORDERED EKG.
[2019-09-28 13:52] LABS: BASOPHILS % (AUTO) 0.5 % (0.0-2.0); EOSINOPHILS # (AUTO) 0.6 K/uL (0-0.4); HEMATOCRIT 31.4 % (36-48); HEMOGLOBIN 10.3 g/dL (12.0-16.0); LYMPHOCYTES # (AUTO) 0.9 K/uL (2.5-16.5); LYMPHOCYTES % (AUTO) 12.1 % (20.5-51.1); MEAN CORPUSCULAR HEMOGLOBIN 29 pg (27-31); MEAN CORPUSCULAR HGB CONC 33 g/dL (33-37); MEAN CORPUSCULAR VOLUME 89.8 fL (80-94); MONOCYTES # (AUTO) 0.4 K/uL (0.8-1.0); MONOCYTES % (AUTO) 5.9 % (1.7-9.3); NEUTROPHILS # (AUTO) 5.2 K/uL (1.8-7.7); NEUTROPHILS % (AUTO) 73.5 % (42.2-75.2); PLATELET COUNT (AUTO) 323 K/uL (140-450); RED BLOOD CELL COUNT(AUTO) 3.49 MIL/uL (4.20-5.40); RED CELL DISTRIBUTION WIDTH 14.7 % (11.6-13.7); WHITE BLOOD COUNT (AUTO) 7.1 K/uL (4.8-10.8)
--- NOTE | 2019-09-28 14:09 | NUR ---
X-RAY TECH AT BEDSIDE PERFORMING ORDERED TEST
--- NOTE | 2019-09-28 14:49 | NUR ---
PT IV IN RT AC, 20G, BECAME PAINFUL TO TOUCH, SWOLLEN. UNABLE TO CONTINUE IV INFUSION WITH THIS IV. PT REFUSED SECOND IV.
[2019-09-28 14:51] LABS: CHLORIDE 102 mmol/L (98-107); SODIUM SERUM 136 mmol/L (136-145)
[2019-09-28 14:52] LABS: ASPARTATE AMINOTRANSFERASE 13 U/L (15-37); CREATININE 2.5 mg/dL (0.6-1.3); GLUCOSE 103 mg/dL (74-106); TOTAL BILIRUBIN 0.2 mg/dL (0.0-1.0); UREA NITROGEN, BLOOD 47 mg/dL (7-18)
[2019-09-28 14:53] LABS: ALBUMIN 2.8 g/dL (3.4-5.0)
--- NOTE | 2019-09-28 16:12 | NUR ---
PT RESTING COMFORTABLY, EYES CLOSED, RESPIRATIONS EVEN, VS STABLE. PT STILL CONTINUING TO REFUSE TREATMENT.
--- NOTE | 2019-09-28 17:46 | NUR ---
PT RESTING COMFORTABLY, VS STABLE. PT STILL REFUSING TREATMENT. PT OFFERED FOOD, ORDERED A FOOD TRAY FOR PT BEFORE TRANSPORTATION ARIVES FOR DISCHARGE.
--- NOTE | 2019-09-28 18:57 | NUR ---
PT RESTING COMFORTABLY, OFFERED FOOD, PT DID NOT WANT ANYTHING TO EAT OR DRINK, VS STABLE. PT REFUSED ADDITIONAL TREATMENT. WAITING FOR TRANSPORTATION FOR PATIENT.
[2019-09-28 19:14] VITALS: BP 135/96
--- NOTE | 2019-09-28 19:15 | NUR ---
Patient discharged with v/s stable. Written and verbal after care instructions given and explained. Patient verbalized understanding. Ambulance Transport with by caregiver. All questions addressed prior to discharge. Pt refused aditional medical care. Advised to follow up with PMD.
--- NOTE | 2019-10-02 08:27 | NUR ---
Late entry. Confirmed with RN that Zithromax IV completed at 1600
== END 2019-09-28 19:15 | disposition home or self-care (01) ==
LOC: MED 12:00
DX: J44.9 Chronic obstructive pulmonary disease, unspecified (principal); I10 Essential (primary) hypertension; E11.9 Type 2 diabetes mellitus without complications; F03.90 Unspecified dementia, unspecified severity, without behavioral disturbance, psychotic disturbance, mood disturbance, and anxiety; G30.9 Alzheimer's disease, unspecified; G93.40 Encephalopathy, unspecified; Z79.899 Other long term (current) drug therapy; Z79.82 Long term (current) use of aspirin
CPT/HCPCS: 36415; 71045; 80053; 82948; 83880; 84484; 85025; 87040; 93005; 96365; 96367; 99284; J0456; J0696; Q0092; 96366